=== PATIENT | male | born 1970 | race Caucasian/White ===

== ENCOUNTER 2020-08-10 03:20 | Emergency (ER) | payer SELFPAY ==
[2020-08-10] MEDS ORDERED: MORPHINE 4 MG/ML SYR ONE (03:44)
[2020-08-10] MEDS ORDERED: ONDANSETRON 4 MG/2 ML VIAL ONE (03:44)
[2020-08-10] MEDS ORDERED: NA CHLORIDE 0.9% 1,000 ML ONE (03:44)
[2020-08-10 04:00] LABS: Absolute Lymphocytes (CBC) 0.6 K/uL (0.7-4.9); Basophils % 0.5 % (0-1.3); Hematocrit 48.5 % (39.6-49.0); Lymphocytes % 6.1 % (15.3-44.8); MPV 8.2 fL (7.6-11.3); RBC Red Blood Cell Count 5.94 M/uL (4.33-5.43)
[2020-08-10 04:01] LABS: Calcium Oxalate Crystals- Ur FEW (NONE SEEN); Urine Bacteria <20 /HPF (NONE SEEN); Urine Culture Reflex Order REFLEXED; Urine Mucus 1+ /HPF (NONE SEEN); Urine RBC <5 /HPF (NONE SEEN)
[2020-08-10 04:07] LABS: Barbiturates NEGATIVE (NEGATIVE); Benzodiazepines NEGATIVE (NEGATIVE); Cocaine POSITIVE (NEGATIVE); METHAMPHETAM POSITIVE (NEGATIVE); Methadone NEGATIVE (NEGATIVE); Opiates NEGATIVE (NEGATIVE); Phencyclidine NEGATIVE (NEGATIVE); THC Cannibis NEGATIVE (NEGATIVE)
[2020-08-10 04:08] LABS: Albumin 4.2 g/dL (3.4-5.0); Bilirubin Direct 0.2 mg/dL (0-0.2); Bilirubin Total 0.7 mg/dL (0.2-1.0); Potassium 3.8 mmol/L (3.5-5.1); Protein, Total 8.7 g/dL (6.4-8.2)
[2020-08-10 05:24] LABS: Urine Blood NEGATIVE (NEG); Urine Glucose TRACE (NEG); Urine Protein 1+ (NEG); Urine Specific Gravity 1.025 (1.005-1.030)
[2020-08-10 05:25] LABS: Blood Morphology Comment NOT SEEN (NOT SEEN); Platelet Estimate ADEQ
--- NOTE | 2020-08-10 05:42 | ER ---
Nurse's Notes [facility] Name: Sanjiv Hdz Age: 50 yrs Sex: Male : 1970 Arrival Date: 08/10/2020 Time: 03:21 Bed 8 Private MD: Diagnosis: Right upper quadrant pain. Possible cholelcystitis Presentation: 08/10 03:22 Chief complaint: EMS states: complaint of severe abdominal pain (RUQ) started 3 hours rr5 ago with nausea and vomiting. pain score 10/10 non radiating, no fever. Coronavirus screen: Client denies travel out of the [place] in the last 14 days. At this time, the client does not indicate any symptoms associated with coronavirus-19. Ebola Screen: Patient negative for fever greater than or equal to 101.5 degrees Fahrenheit, and additional compatible Ebola Virus Disease symptoms Patient denies exposure to infectious person. Patient denies travel to an Ebola-affected area in the 21 days before illness onset. Initial Sepsis Screen: Does the patient meet any 2 criteria? No. Patient's initial sepsis screen is negative. Does the patient have a suspected source of infection? No. Patient's initial sepsis screen is negative. Risk Assessment: Do you want to hurt yourself or someone else? Patient reports no desire to harm self or others. Onset of symptoms was August 10, 2020. 03:22 Method Of Arrival: EMS: [facility] rr5 03:22 Acuity: ZEE 3 rr5 03:22 Care prior to arrival: Medication(s) given: reglan 10 mg/IV by EMS IV initiated. 18 GA, rr5 in the right forearm. Historical: - Allergies: 03:22 No Known Allergies; rr5 - Home Meds: 03:22 None [Active]; rr5 - PMHx: 03:22 Anxiety; Hypertension; rr5 - PSHx: 03:22 None; rr5 - Immunization history:: Adult Immunizations up to date. - Social history:: Smoking status: Patient reports the use of cigarette tobacco products, smokes one pack cigarettes per day. Patient/guardian denies using alcohol, street drugs. Screenin:25 Abuse screen: Denies threats or abuse. Denies injuries from another. Nutritional rr5 screening: No deficits noted. Tuberculosis screening: No symptoms or risk factors identified. Fall Risk IV access (20 points). Total Nolan Fall Scale indicates No Risk (0-24 pts). Assessment: 03:39 General: Appears uncomfortable, Behavior is appropriate for age. Pain: Complains of ea pain in right upper quadrant. Neuro: Level of Consciousness is awake, alert, obeys commands, Oriented to person, place, time. Respiratory: Airway is patent Respiratory effort is even, unlabored, Respiratory pattern is regular, symmetrical. GI: Abdomen is non-distended, Abd is soft and non tender X 4 quads. Derm: Skin is pink, warm \T\ dry. 03:39 Cardiovascular: Capillary refill < 3 seconds Patient's skin is warm and dry. GI: : No rr5 signs and/or symptoms were reported regarding the genitourinary system. EENT: No signs and/or symptoms were reported regarding the EENT system. Musculoskeletal: Capillary refill < 3 seconds. 04:50 Reassessment: Patient and/or family updated on plan of care and expected duration. Pain ea level reassessed. Awaiting on CT results. 05:34 Reassessment: Patient appears in no apparent distress at this time. Patient is alert, rr5 oriented x 3, equal unlabored respirations, skin warm/dry/pink. reassessment done by ED provider. 05:49 Reassessment: Patient appears in no apparent distress at this time. Patient is alert, rr5 oriented x 3, equal unlabored respirations, skin warm/dry/pink. for discharge ED provider advised to follow up to dr. reyes or to [facility] for further evaluation. discharge instruction given and explained without complaint made Patient states feeling better. Patient states symptoms have improved. Vital Signs: 03:22 Weight 72.57 kg; Height 5 ft. 9 in. (175.26 cm); Pain 10/10; rr5 03:22 BP 178 / 116; Pulse 75; Resp 16; Pulse Ox 100% ; rr5 03:30 Temp 98; ea 04:30 BP 143 / 65; Pulse 79; Resp 15; Pulse Ox 98% ; rr5 05:34 BP 141 / 85; Pulse 75; Resp 16; Pulse Ox 99% ; rr5 03:22 Body Mass Index 23.63 (72.57 kg, 175.26 cm) rr5 ED Course: 03:21 Patient arrived in ED. cl3 03:21 Donohue, Lan, RN is Primary Nurse. rr5 03:23 Triage completed. rr5 03:24 Bandar Araiza MD is Attending Physician. pkl 03:24 Arm band placed on right wrist. rr5 03:26 Patient has correct armband on for positive identification. Bed in low position. Call rr5 light in reach. Pulse ox on. NIBP on. 03:43 UDS Sent. ds4 03:45 Urine Microscopic Only Sent. ds4 04:47 CT Abd/Pelvis - IV Contrast Only In Process Unspecified. EDMS 05:40 Mitch Reyes MD is Referral Physician. pkl 05:51 No provider procedures requiring assistance completed. IV discontinued, intact, rr5 bleeding controlled, No redness/swelling at site. Pressure dressing applied. Administered Medications: 03:37 Drug: morphine 4 mg Route: IVP; Site: right forearm; ea 04:45 Follow up: Response: No adverse reaction; Marked relief of symptoms; RASS: Alert and rr5 Calm (0) 03:37 Drug: Zofran (Ondansetron) 4 mg Route: IVP; Site: right forearm; ea 04:45 Follow up: Response: No adverse reaction; Marked relief of symptoms rr5 03:38 Drug: NS 0.9% 1000 ml Route: IV; Rate: 1 bolus; Site: right forearm; ea 04:40 Follow up: Response: No adverse reaction; IV Status: Completed infusion; IV Intake: rr5 1000ml Intake: 04:40 IV: 1000ml; Total: 1000ml. rr5 Outcome: 05:42 Discharge ordered by . pkl 05:51 Discharged to home ambulatory. rr5 05:51 Condition: stable 05:51 Discharge instructions given to patient, Instructed on discharge instructions, follow up and referral plans. medication usage, Demonstrated understanding of instructions, follow-up care, medications, Prescriptions given X 2. 05:52 Patient left the ED. rr5 Signatures: Dispatcher [employer] EDWV Bandar Araiza MD MD pkl Bright Caldwell ds4 Sridevi Joseph, RN Lan Garcia ea, RN RN rr5 Landy Kwong cl3
--- NOTE | 2020-08-10 05:42 | EDPHYS ---
Physician Documentation [facility] Name: Sanjiv Hdz Age: 50 yrs Sex: Male : 1970 Arrival Date: 08/10/2020 Time: 03:21 Bed 8 Private MD: ED Physician Bandar Araiza HPI: 08/10 03:34 This 50 yrs old Male presents to ER via EMS with complaints of Abdominal Pain.pkl 03:34 The patient presents with abdominal pain in the right upper quadrant. Onset: The pkl symptoms/episode began/occurred just prior to arrival, 3 hour(s) ago. The symptoms do not radiate. Associated signs and symptoms: Pertinent positives: nausea and vomiting. The patient has not experienced similar symptoms in the past. Historical: - Allergies: 03:22 No Known Allergies; rr5 - Home Meds: 03:22 None [Active]; rr5 - PMHx: 03:22 Anxiety; Hypertension; rr5 - PSHx: 03:22 None; rr5 - Immunization history:: Adult Immunizations up to date. - Social history:: Smoking status: Patient reports the use of cigarette tobacco products, smokes one pack cigarettes per day. Patient/guardian denies using alcohol, street drugs. ROS: 03:34 Eyes: Negative for injury, pain, redness, and discharge, ENT: Negative for injury, pkl pain, and discharge, Neck: Negative for injury, pain, and swelling, Cardiovascular: Negative for chest pain, palpitations, and edema, Respiratory: Negative for shortness of breath, cough, wheezing, and pleuritic chest pain. 03:34 Abdomen/GI: Positive for abdominal pain, nausea and vomiting, of the right upper quadrant. 03:34 Back: Negative for acute changes. 03:34 : Negative for urinary symptoms. 03:34 MS/extremity: Negative for acute changes. 03:34 Skin: Negative for rash. 03:34 Neuro: Negative for altered mental status. Exam: 03:34 Head/Face: Normocephalic, atraumatic. Eyes: Pupils equal round and reactive to light, pkl extra-ocular motions intact. Lids and lashes normal. Conjunctiva and sclera are non-icteric and not injected. Cornea within normal limits. Periorbital areas with no swelling, redness, or edema. ENT: Nares patent. No nasal discharge, no septal abnormalities noted. Tympanic membranes are normal and external auditory canals are clear. Oropharynx with no redness, swelling, or masses, exudates, or evidence of obstruction, uvula midline. Mucous membranes moist. Neck: Trachea midline, no thyromegaly or masses palpated, and no cervical lymphadenopathy. Supple, full range of motion without nuchal rigidity, or vertebral point tenderness. No Meningismus. Chest/axilla: Normal chest wall appearance and motion. Nontender with no deformity. No lesions are appreciated. Cardiovascular: Regular rate and rhythm with a normal S1 and S2. No gallops, murmurs, or rubs. Normal PMI, no JVD. No pulse deficits. Respiratory: Lungs have equal breath sounds bilaterally, clear to auscultation and percussion. No rales, rhonchi or wheezes noted. No increased work of breathing, no retractions or nasal flaring. 03:34 Abdomen/GI: Bowel sounds: normal, Palpation: soft, moderate abdominal tenderness, in the right upper quadrant. 03:34 Back: Exam negative for acute changes. 03:34 : Exam negative for acute changes. 03:34 Musculoskeletal/extremity: Exam is negative for acute changes. 03:34 Skin: Exam negative for rash. 03:34 Neuro: Orientation: is normal, Mentation: is normal, Cranial nerves: grossly normal, Motor: is normal. Vital Signs: 03:22 Weight 72.57 kg; Height 5 ft. 9 in. (175.26 cm); Pain 10/10; rr5 03:22 BP 178 / 116; Pulse 75; Resp 16; Pulse Ox 100% ; rr5 03:30 Temp 98; ea 04:30 BP 143 / 65; Pulse 79; Resp 15; Pulse Ox 98% ; rr5 05:34 BP 141 / 85; Pulse 75; Resp 16; Pulse Ox 99% ; rr5 03:22 Body Mass Index 23.63 (72.57 kg, 175.26 cm) rr5 MDM: 03:24 Patient medically screened. pkl 05:37 Data reviewed: vital signs, nurses notes, lab test result(s), radiologic studies, CT pkl scan. ED course: Patient feeling better. Discussed lab and CT Scan results with patient. Advised to follow up with Dr. Jain ( Surgeon ) in 2 to 3 days for further evaluations Patient understood instructions. 08/10 03:26 Order name: Basic Metabolic Panel; Complete Time: 04:12 rr5 08/10 03:26 Order name: CBC with Diff; Complete Time: 05:27 rr5 08/10 03:26 Order name: Hepatic Function; Complete Time: 04:12 rr5 08/10 03:26 Order name: Lipase; Complete Time: 04:12 rr5 08/10 03:32 Order name: UDS; Complete Time: 04:12 pkl 08/10 03:43 Order name: Urine Microscopic Only ds4 08/10 03:32 Order name: CT Abd/Pelvis - IV Contrast Only pkl 08/10 03:44 Order name: Urine Dipstick--Ancillary (enter results); Complete Time: 05:27 ds4 08/10 04:03 Order name: Urine Culture EDMS 08/10 04:05 Order name: Manual Differential; Complete Time: 05:27 EDMS 08/10 03:26 Order name: IV Saline Lock; Complete Time: 03:28 rr5 08/10 03:26 Order name: Labs collected and sent; Complete Time: 03:28 rr5 Administered Medications: 03:37 Drug: morphine 4 mg Route: IVP; Site: right forearm; ea 04:45 Follow up: Response: No adverse reaction; Marked relief of symptoms; RASS: Alert and rr5 Calm (0) 03:37 Drug: Zofran (Ondansetron) 4 mg Route: IVP; Site: right forearm; ea 04:45 Follow up: Response: No adverse reaction; Marked relief of symptoms rr5 03:38 Drug: NS 0.9% 1000 ml Route: IV; Rate: 1 bolus; Site: right forearm; ea 04:40 Follow up: Response: No adverse reaction; IV Status: Completed infusion; IV Intake: rr5 1000ml Disposition: 08/10/20 05:42 Discharged to Home. Impression: Right upper quadrant pain. Possible cholelcystitis. - Condition is Stable. - Prescriptions for Ultram 50 mg Oral Tablet - take 1 tablet by ORAL route every 8 hours As needed; 12 tablet. Cipro 500 mg Oral Tablet - take 1 tablet by ORAL route every 12 hours for 7 days; 14 tablet. - Medication Reconciliation Form, Thank You Letter, Antibiotic Education, Prescription Opioid Use form. - Follow up: Mitch Silverio MD; When: 2 - 3 days; Reason: Re-evaluation by your physician. - Problem is new. - Symptoms have improved. Signatures: Dispatcher [employer] EDBandar Luis MD MD pkl Sridevi Joseph RN Lan Garcia ea RN RN rr5 Corrections: (The following items were deleted from the chart) 05:52 05:42 08/10/2020 05:42 Discharged to Home. Impression: Right upper quadrant pain. rr5 Possible cholelcystitis. Condition is Stable. Forms are Medication Reconciliation Form, Thank You Letter, Antibiotic Education, Prescription Opioid Use. Follow up: Mitch Silverio; When: 2 - 3 days; Reason: Re-evaluation by your physician. Problem is new. Symptoms have improved. pkl
[2020-08-10] MEDS ORDERED: CIPROFLOXACIN HCL 500 MG TAB ONE (05:55)
--- NOTE | 2020-08-10 10:11 | RAD REPORT ---
EXAM DESCRIPTION: CT - Abdomen Pelvis W Contrast - 08/10/2020 6:34 am CLINICAL HISTORY: The patient is 50 years old and is Male; ABD PAIN TECHNIQUE: Axial computed tomography images of the abdomen and pelvis with intravenous contrast. S agittal and coronal reformatted images were created and reviewed. This CT exam was performed using one or more of the following dose reduction techniques: automated exposure control, adjustment of t he mA and/or kV according to patient size, and/or use of iterative reconstruction technique. COMPARISON: No relevant prior studies available. FINDINGS: LUNG BASES: Minimal dependent densities in the lung bases are present. ABDOMEN: LIVER: Unremarkable. No mass. GALLBLADDER AND BILE DUCTS: The gallbladder is distended. No calcified gallstones are seen. Mild pericholecystic fluid/gallbladder wall enhancement is noted. PANCREAS: No ductal dilation. No mass. SPLEEN: Unremarkable. ADRENALS: Unremarkable. No mass. KIDNEYS AND URETERS: Unremarkable. The kidneys enhance symmetrically. No obstructing renal or ur eteral calculus is seen. No hydronephrosis or hydroureter. No perinephric fluid or stranding. STOMACH AND BOWEL: The stomach is minimally filled with fluid and air. The small bowel is normal in caliber. A moderate amount stool is present throughout colon. There is no mucosal thickening or e vidence of bowel obstruction. PELVIS: APPENDIX: The appendix is normal in caliber without surrounding inflammation. BLADDER: The bladder is not well distended. REPRODUCTIVE: Unremarkable as visualized. ABDOMEN and PELVIS: INTRAPERITONEAL SPACE: Unremarkable. No free air. No significant fluid collection. BONES/JOINTS: No acute fracture. SOFT TISSUES: The soft tissues are normal. VASCULATURE: Unremarkable. No abdominal aortic aneurysm. LYMPH NODES: Unremarkable. No enlarged lymph nodes. IMPRESSION: Distended gallbladder with suggestion of mild pericholecystic fluid and gallbladder wall enhancement. Findings are concerning for acute cholecystitis. Further evaluation with ultrasound and /or HIDA scan could be performed. Electronically signed by: Melissa Quinn MD 08/10/2020 5:06 AM SENIOR HRIS ANALYST Due to temporary technical issues with the PACS/Fluency reporting system, reports are being signed by the in house radiologist without review as a courtesy to ensure prompt reporting. The interpreting r adiologist is fully responsible for the content of the report.
[2020-08-10 15:22] VITALS: TEMP 98
[2020-08-10 15:25] VITALS: BP 141/85; O2SAT 99
== END 2020-08-10 05:52 | disposition home or self-care (01) ==
LOC: ER 03:20
DX: R10.11 Right upper quadrant pain (principal); K82.8 Other specified diseases of gallbladder; I10 Essential (primary) hypertension; F17.210 Nicotine dependence, cigarettes, uncomplicated
CPT/HCPCS: 36415; 74177; 80048; 80076; 80307; 81003; 81015; 83690; 85025; 87086; 87088; 96361; 96374; 96375; 99284; J2405; J7030; Q9967

== ENCOUNTER 2020-08-15 11:22 | Inpatient (IN) | payer SELFPAY ==
--- OUTSIDE RECORDS SUMMARY | 2020-08-15 11:46 | XMS REPORT | Continuity of Care Document ---
:1970 Author Organization [facility] t Address [address] [place] [address] Care Team Providers Name Role Phone Thong BARONE S Attending Clinician Problems This patient has no known problems. Allergies, Adverse Reactions, Alerts This patient has no known allergies or adverse reactions. Medications This patient has no known medications. Procedures This patient has no known procedures. Encounters Start End Encounter Admission Attending Care Care Encounter Source Date/Time Date/Time Type Type Clinicians Facility Department ID 2020-08-14 2020-08-14 Emergency JANNET Benito [id number] 04:41:00 06:09:00 Aaron Brewer [id number] [place] [id number] [place] [id number] Results This patient has no known results.
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
[2020-08-15] MEDS ORDERED: MORPHINE 4 MG/ML SYR ONE ×2 (12:04→12:42)
[2020-08-15] MEDS ORDERED: NA CHLORIDE 0.9% 1,000 ML ONE ×2 (12:04→14:46)
[2020-08-15] MEDS ORDERED: ONDANSETRON 4 MG/2 ML VIAL ONE (12:04)
[2020-08-15 12:15] LABS: Bilirubin Direct 0.1 mg/dL (0-0.2); Bilirubin Total 0.5 mg/dL (0.2-1.0); Potassium 4.1 mmol/L (3.5-5.1); Protein, Total 8.3 g/dL (6.4-8.2)
[2020-08-15 12:16] LABS: Absolute Lymphocytes (CBC) 0.9 K/uL (0.7-4.9); Basophils % 0.5 % (0-1.3); Hematocrit 49.7 % (39.6-49.0); Lymphocytes % 8.3 % (15.3-44.8); RBC Red Blood Cell Count 6.02 M/uL (4.33-5.43)
--- NOTE | 2020-08-15 12:30 | RAD REPORT ---
EXAM DESCRIPTION: US - Abdomen Exam Limited - 08/15/2020 12:17 pm CLINICAL HISTORY: ABD PAIN COMPARISON: Abdomen Pelvis W Contrast dated 08/10/2020 FINDINGS: There is at least one 12 millimeter size gallstone fixed at the neck. Additional adjacent smaller stones could be present as well. No mobile gallstones seen. No measurable quantity of sludge. Gallbladder wall thickness is upper normal. No pericholecystic fluid seen. No common duct stone or biliary tree dilatation identified. IMPRESSION: A 12 millimeter gallstone is fixed at the neck of the gallbladder. Gallbladder wall thic kness is upper normal. No biliary tree dilatation or duct stone seen.
[2020-08-15] MEDS ORDERED: KETOROLAC 30 MG/ML INJ ONE ×2 (12:42→18:49)
--- NOTE | 2020-08-15 14:06 | EDPHYS ---
Physician Documentation [facility] Name: Sanjiv Hdz Age: 50 yrs Sex: Male : 1970 Arrival Date: 08/15/2020 Time: : Bed 17 Private MD: ED Physician Eldon Thomas HPI: 08/15 14:00 This 50 yrs old Male presents to ER via Wheelchair with complaints of kb Abdominal Pain. 14:01 The patient presents with abdominal pain in the right upper quadrant. Onset: The kb symptoms/episode began/occurred 5 day(s) ago, and became worse this morning. The symptoms do not radiate. Associated signs and symptoms: Pertinent positives: nausea and vomiting. The symptoms are described as constant. Modifying factors: The symptoms are alleviated by nothing, the symptoms are aggravated by pressure. Severity of pain: At its worst the pain was severe in the emergency department the pain is unchanged. The patient has not experienced similar symptoms in the past. The patient has not recently seen a physician. Pt reports RUQ pain that started 5 days ago. Pt was seen here the first day and [place] [facility] 2 days ago. Pt was told to follow up with surgery, but has not been able to yet. States pain got worse this morning with nausea and vomiting. . Historical: - Allergies: 12:05 No Known Allergies; tw2 - PMHx: 11:37 Anxiety; Hypertension; ca1 - PSHx: 11:37 None; ca1 - Immunization history:: Adult Immunizations up to date, Flu vaccine is not up to date. - Social history:: Smoking status: Patient reports the use of cigarette tobacco products, smokes one-half pack cigarettes per day. ROS: 11:44 Constitutional: Negative for fever, chills, and weight loss, Cardiovascular: Negative kb for chest pain, palpitations, and edema, Respiratory: Negative for shortness of breath, cough, wheezing, and pleuritic chest pain, Back: Negative for injury and pain, : Negative for injury, bleeding, discharge, and swelling, MS/Extremity: Negative for injury and deformity, Skin: Negative for injury, rash, and discoloration, Neuro: Negative for headache, weakness, numbness, tingling, and seizure. 11:44 Abdomen/GI: Positive for abdominal pain, nausea and vomiting, Negative for diarrhea, constipation. Exam: 11:44 Constitutional: This is a well developed, well nourished patient who is awake, alert, kb and in no acute distress. Head/Face: Normocephalic, atraumatic. Chest/axilla: Normal chest wall appearance and motion. Nontender with no deformity. No lesions are appreciated. Cardiovascular: Regular rate and rhythm with a normal S1 and S2. No gallops, murmurs, or rubs. Normal PMI, no JVD. No pulse deficits. Respiratory: Lungs have equal breath sounds bilaterally, clear to auscultation and percussion. No rales, rhonchi or wheezes noted. No increased work of breathing, no retractions or nasal flaring. Back: No spinal tenderness. No costovertebral tenderness. Full range of motion. Skin: Warm, dry with normal turgor. Normal color with no rashes, no lesions, and no evidence of cellulitis. MS/ Extremity: Pulses equal, no cyanosis. Neurovascular intact. Full, normal range of motion. Neuro: Awake and alert, GCS 15, oriented to person, place, time, and situation. Cranial nerves II-XII grossly intact. Motor strength 5/5 in all extremities. Sensory grossly intact. Cerebellar exam normal. Normal gait. 11:44 Abdomen/GI: Inspection: abdomen appears normal, Bowel sounds: normal, in all quadrants, Palpation: soft, in all quadrants, severe abdominal tenderness, in the right upper quadrant. 11:45 ECG was reviewed by the Attending Physician. kb Vital Signs: 11:34 BP 189 / 113; ca1 11:34 BP 187 / 106 RA; Pulse 86; Resp 20; Temp 97.6(O); Pulse Ox 100% on R/A; Weight 74.84 kg ca1 (R); Height 5 ft. 9 in. (175.26 cm) (R); Pain 10/10; 12:46 BP 162 / 104; Pulse 72; Resp 21; Pulse Ox 100% on R/A; zb 13:42 BP 140 / 92; Pulse 83; Resp 17; Pulse Ox 99% on R/A; tw2 14:30 BP 145 / 94; Pulse 81; Resp 18; Pulse Ox 97% on R/A; zb 11:34 Body Mass Index 24.37 (74.84 kg, 175.26 cm) ca1 MDM: 11:37 Patient medically screened. kb 11:45 Data reviewed: vital signs, nurses notes. Data interpreted: Pulse oximetry: on room air kb is 100 %. Interpretation: normal. 13:36 Physician consultation: Ike Zaragoza MD was contacted at 13:36, regarding consult, kb patient's condition, message left. 13:44 Physician consultation: Physician consultation: was contacted at 13:44, regarding kb admission, to the medical/surgical unit. patient's condition, and will see patient in ED, shortly. 14:00 Counseling: I had a detailed discussion with the patient and/or guardian regarding: the kb historical points, exam findings, and any diagnostic results supporting the discharge/admit diagnosis, lab results, radiology results, the need for further work-up and treatment in the hospital. 08/15 11:40 Order name: Basic Metabolic Panel; Complete Time: 12:15 kb 08/15 11:40 Order name: CBC with Diff; Complete Time: 12:22 kb 08/15 11:40 Order name: Hepatic Function; Complete Time: 12:15 kb 08/15 11:40 Order name: Lipase; Complete Time: 12:15 kb 08/15 14:17 Order name: Basic Metabolic Panel EDMS 08/15 14:17 Order name: Basic Metabolic Panel EDMS 08/15 11:40 Order name: US Abdomen Limited; Complete Time: 12:33 kb 08/15 14:18 Order name: CBC with Automated Diff EDMS 08/15 14:18 Order name: CBC with Automated Diff EDMS 08/15 11:38 Order name: EKG; Complete Time: 11:38 ca1 08/15 11:38 Order name: EKG - Nurse/Tech; Complete Time: 11:38 ca1 08/15 11:40 Order name: IV Saline Lock; Complete Time: 11:58 kb 08/15 11:40 Order name: Labs collected and sent; Complete Time: 11:58 kb 08/15 14:17 Order name: NPO; Complete Time: 14:20 EDMS EC:45 Rate is 84 beats/min. Rhythm is regular. QRS [place] is Normal. ME interval is normal at kb 128 msec. QRS interval is normal at 84 msec. QT interval is normal at 378 msec. Administered Medications: 11:54 Drug: Zofran (Ondansetron) 4 mg Route: IVP; Site: left wrist; tw2 12:42 Follow up: Response: No adverse reaction zb 11:56 Drug: morphine 4 mg {Note: RASS 0.} Route: IVP; Site: left wrist; tw2 12:20 Follow up: Response: No adverse reaction; Pain is unchanged, physician notified zb 11:57 Drug: NS 0.9% 1000 ml Route: IV; Rate: 1000 ml; Site: left wrist; tw2 14:45 Follow up: Response: No adverse reaction; IV Status: Completed infusion; IV Intake: zb 1000ml 12:41 Drug: TORadol - Ketorolac 15 mg Route: IVP; Site: right antecubital; zb 12:43 Follow up: Response: No adverse reaction; Pain is decreased zb 12:42 Drug: morphine 4 mg Route: IVP; Site: right antecubital; zb 12:43 Follow up: Response: Marked relief of symptoms; Pain is decreased zb 14:38 Drug: NS 0.9% 1000 ml Route: IV; Rate: 125 ml/hr; Site: right antecubital; zb 14:46 Follow up: Response: No adverse reaction; IV Status: Infusion continued upon admission zb 14:39 Drug: Zosyn 3.375 grams Route: IVPB; Infused Over: 60 mins; Site: right antecubital; zb 14:45 Follow up: Response: No adverse reaction; IV Status: Infusion continued upon admission zb Disposition: 08/15/20 14:05 Hospitalization ordered by Ike Zaragoza for Observation. Preliminary diagnosis are Cholelithiasis, Upper abdominal pain, unspecified. - Bed requested for Telemetry/MedSurg (observation). - Status is Observation. zb - Condition is Stable. - Problem is new. - Symptoms are unchanged. Addendum: 08/20/2020 21:00 Co-signature as Attending Physician, Eldon Thomas MD Did not see or evaluate patient. p s1 Signature for administrative purposes. . Signatures: Dispatcher [employer] Belkys Bourne FNP-C FNP-Randa Villar RN RN tw2 Eldon Thomas MD MD ps1 Acob, Cheryl, RN RN ca1 Brown, Zipporah, RN RN zb Corrections: (The following items were deleted from the chart) 08/15 12:05 11:37 Allergies: Tetanus Vaccines \T\ Toxoid; ca1 tw2 14:00 13:44 Physician consultation: jeni kb 14:46 14:05 Hospitalization Ordered by Ike Zaragoza MD for Observation. Preliminary zb diagnosis is Cholelithiasis; Upper abdominal pain, unspecified. Bed requested for Telemetry/MedSurg (observation). Status is Observation. Condition is Stable. Problem is new. Symptoms are unchanged. kb
--- NOTE | 2020-08-15 14:06 | ER ---
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 Was here 4 days ago for gall bladder issues and was prescribed abx. Denies fever. Coronavirus screen: Client denies travel out of the [place] in the last 14 days. nausea, shortness of breath, Client presents with at least one sign or symptom that may indicate coronavirus-19. Standard/surgical mask placed on the client. Provider contacted for isolation considerations. Ebola Screen: Patient negative for fever greater than or equal to 101.5 degrees Fahrenheit, and additional compatible Ebola Virus Disease symptoms Patient denies exposure to infectious person. Patient denies travel to an Ebola-affected area in the 21 days before illness onset. No symptoms or risks identified at this time. Initial Sepsis Screen: Does the patient meet any 2 criteria? No. Patient's initial sepsis screen is negative. Does the patient have a suspected source of infection? No. Patient's initial sepsis screen is negative. Risk Assessment: Do you want to hurt yourself or someone else? Patient reports no desire to harm self or others. Onset of symptoms was August 15, 2020. 11:34 Method Of Arrival: Wheelchair ca1 11:34 Acuity: ZEE 3 ca1 Triage Assessment: 11:37 Cardiovascular: Rhythm is sinus rhythm. ca1 Historical: - Allergies: 12:05 No Known Allergies; tw2 - PMHx: 11:37 Anxiety; Hypertension; ca1 - PSHx: 11:37 None; ca1 - Immunization history:: Adult Immunizations up to date, Flu vaccine is not up to date. - Social history:: Smoking status: Patient reports the use of cigarette tobacco products, smokes one-half pack cigarettes per day. Screenin:05 Abuse screen: Denies threats or abuse. Nutritional screening: No deficits noted. tw2 Tuberculosis screening: No symptoms or risk factors identified. Fall Risk None identified. Assessment: 11:23 General: Appears uncomfortable, obese, Behavior is anxious, fussy. Pain: Complains of tw2 pain in right upper quadrant Pain does not radiate. Pain began "was here 4 days ago". Neuro: Level of Consciousness is awake, alert, obeys commands, Oriented to person, place, time, situation. Cardiovascular: Heart tones S1 S2 Patient's skin is warm and dry. Respiratory: Airway is patent Respiratory effort is even, unlabored, Respiratory pattern is regular, symmetrical, Breath sounds are clear bilaterally. GI: Abdomen is flat, Bowel sounds present X 4 quads. Reports lower abdominal pain, upper abdominal pain, nausea. : No signs and/or symptoms were reported regarding the genitourinary system. EENT: No signs and/or symptoms were reported regarding the EENT system. Derm: No signs and/or symptoms reported regarding the dermatologic system. Musculoskeletal: Range of motion: intact in all extremities. 12:44 General: Appears uncomfortable, Behavior is cooperative, anxious. Pain: Complains of zb pain in right upper quadrant Pain does not radiate. Pain currently is 6 out of 10 on a pain scale. Quality of pain is described as aching, crampy. Neuro: Level of Consciousness is awake, alert, obeys commands, Oriented to person, place, time, situation. Cardiovascular: Heart tones S1 S2 Capillary refill < 3 seconds is sluggish in bilateral fingers Patient's skin is warm and dry. Respiratory: Airway is patent Respiratory effort is even, unlabored, Respiratory pattern is symmetrical, tachypnea. GI: Abdomen is flat, non-distended, Bowel sounds present X 4 quads. Reports upper abdominal pain, nausea. : No signs and/or symptoms were reported regarding the genitourinary system. EENT: No signs and/or symptoms were reported regarding the EENT system. Derm: Skin is intact, is healthy with good turgor, Skin is normal. 13:44 Reassessment: provider at bedside at this time. tw2 14:41 Reassessment: Patient appears in no apparent distress at this time. Patient and/or zb family updated on plan of care and expected duration. Pain level reassessed. Patient is alert, oriented x 3, equal unlabored respirations, skin warm/dry/pink. Report given to LINETTE Avila nurse. Vital Signs: 11:34 BP 189 / 113; ca1 11:34 BP 187 / 106 RA; Pulse 86; Resp 20; Temp 97.6(O); Pulse Ox 100% on R/A; Weight 74.84 kg ca1 (R); Height 5 ft. 9 in. (175.26 cm) (R); Pain 10/10; 12:46 BP 162 / 104; Pulse 72; Resp 21; Pulse Ox 100% on R/A; zb 13:42 BP 140 / 92; Pulse 83; Resp 17; Pulse Ox 99% on R/A; tw2 14:30 BP 145 / 94; Pulse 81; Resp 18; Pulse Ox 97% on R/A; zb 11:34 Body Mass Index 24.37 (74.84 kg, 175.26 cm) ca1 ED Course: 11:22 Patient arrived in ED. as 11:23 Placed in gown. Bed in low position. Pulse ox on. NIBP on. tw2 11:36 Triage completed. ca1 11:36 Belkys Torres [facility]C [facility]. kb 11:36 Eldon Thomas MD is Attending Physician. kb 11:37 Arm band placed on right wrist. ca1 11:37 EKG completed in triage. Results shown to MD. ca1 11:48 Inserted saline lock: 20 gauge in left wrist, using aseptic technique. ,using aseptic tw2 technique. ANN,Ned Blood collected. 11:49 Randa Staley, RN is Primary Nurse. tw2 11:55 Report given to TEZ Rodriguez. tw2 12:02 IV discontinued, intact, bleeding controlled, Pressure dressing applied, swelling and tw2 pain report to LEFT wrist. 12:16 US Abdomen Limited In Process Unspecified. EDMS 12:47 Patient maintains SpO2 saturation greater than 95% on room air. zb 14:05 Ike Zaragoza MD is Hospitalizing Provider. kb 14:44 No provider procedures requiring assistance completed. Patient admitted, IV remains in zb place. Administered Medications: 11:54 Drug: Zofran (Ondansetron) 4 mg Route: IVP; Site: left wrist; tw2 12:42 Follow up: Response: No adverse reaction zb 11:56 Drug: morphine 4 mg {Note: RASS 0.} Route: IVP; Site: left wrist; tw2 12:20 Follow up: Response: No adverse reaction; Pain is unchanged, physician notified zb 11:57 Drug: NS 0.9% 1000 ml Route: IV; Rate: 1000 ml; Site: left wrist; tw2 14:45 Follow up: Response: No adverse reaction; IV Status: Completed infusion; IV Intake: zb 1000ml 12:41 Drug: TORadol - Ketorolac 15 mg Route: IVP; Site: right antecubital; zb 12:43 Follow up: Response: No adverse reaction; Pain is decreased zb 12:42 Drug: morphine 4 mg Route: IVP; Site: right antecubital; zb 12:43 Follow up: Response: Marked relief of symptoms; Pain is decreased zb 14:38 Drug: NS 0.9% 1000 ml Route: IV; Rate: 125 ml/hr; Site: right antecubital; zb 14:46 Follow up: Response: No adverse reaction; IV Status: Infusion continued upon admission zb 14:39 Drug: Zosyn 3.375 grams Route: IVPB; Infused Over: 60 mins; Site: right antecubital; zb 14:45 Follow up: Response: No adverse reaction; IV Status: Infusion continued upon admission zb Intake: 14:45 IV: 1000ml; Total: 1000ml. zb Outcome: 14:05 Decision to Hospitalize by Provider. kb 14:44 Admitted to OR accompanied by nurse, via wheelchair, with chart, Report called to zb Given to Margarita OR nurse 14:44 Condition: stable 14:44 Instructed on the need for admit. 14:46 Patient left the ED. zb Signatures: Dispatcher [employer] EDBelkys Saxena, WELDING PROCESS ENGINEER-C WELDING PROCESS ENGINEER-Ashanti Mccracken Tara, RN RN tw2 Rylie Perdomo RN RN Aida Man RN RN zb Corrections: (The following items were deleted from the chart) 11:56 11:56 morphine 4 mg IVP in left wrist tw2 tw2 12:05 11:37 Allergies: Tetanus Vaccines \\T\\ Toxoid; ca1 tw2
[2020-08-15] MEDS ORDERED: ONDANSETRON 4 MG/2 ML VIAL IV PRN (14:15)
[2020-08-15] MEDS ORDERED: MORPHINE 4 MG/ML SYR IV PRN (14:15)
[2020-08-15] MEDS ORDERED: PIPER/TAZO/NS 3.375gm 3.375 GM/100 ML BAG ONE (14:46)
[2020-08-15] MEDS ORDERED: NA CHLORIDE 0.9% 1,000 ML IV SCH (15:00)
[2020-08-15] MEDS ORDERED: SUCCINYLCHOLINE 20 MG/ML (10 ML) IV ONE (15:43)
[2020-08-15] MEDS ORDERED: MIDAZOLAM HCL 2 MG/2 ML INJ ONE (15:44)
[2020-08-15] MEDS ORDERED: FENTANYL CITR 250 MCG/5 ML ONE (15:44)
[2020-08-15] MEDS ORDERED: propofoL 200 MG/20 ML VIAL IV ONE (15:44)
[2020-08-15] MEDS ORDERED: ROCURONIUM 50 MG/5 ML VIAL IV ONE (15:54)
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
--- NOTE | 2020-08-15 16:46 | P.OP ---
Preoperative diagnosis: Cholecystitis with cholelithiasis Postoperative diagnosis: The same with hydrops of the gallbladder Primary procedure: Laparoscopic cholecystectomy Secondary procedure: Cholangiogram Other procedure(s): Dejna block Anesthesia: General Estimated blood loss: Less than 10 cc Specimen: 1 gallbladder and contents Operative Technique: The patient brought to the operating room and placed supine on the table. After the induction of adequate general endotracheal anesthesia, there the abdomen was prepped with a DuraPrep solution, and he was draped in usual aseptic manner. A subumbilical incision was made. This brought down through the skin and subcutaneous tissue. The Visiport was now used to enter the peritoneal cavity and created pneumoperitoneum to approximately 12 mm of mercury. Under direct vision a 5 mm trocar was placed in the upper midline, and 2 5 mm trocars on the right lateral side of the abdominal wall. The patient was now placed to ana Trendelenburg. The patient was then rolled to the left. We could visualize right upper quadrant. We saw a markedly distended and inflamed gallbladder. It was necessary to aspirate the contents with a needle so as to place a grasper on it. The bile we obtained was white bile. At this point the gallbladder was grasped down by Malissa's pouch. Applying lateral traction we could see a markedly amount of edema in the area of the Malissa's pouch and were Re expected to find the cystic duct. The peritoneum was opened in this area. We dissected out an expose the cystic duct and artery. Having obtained the critical view the cystic artery was clipped and divided. This made it easier for us to do our cholangiogram. A clip was placed between the gallbladder and the cystic duct. An opening was made into the cystic duct through which we obtained a normal intraoperative cholangiogram. The catheter was now removed. The clips were placed on the distal portion of the cystic duct. The cystic duct was now fully transected. We dissected the gallbladder out from the liver bed. At the beginning of our dissection we found a now brim blood vessel on which we placed clips. The gallbladder having been detached was now placed into an Endo-Catch, and brought out through the umbilical trocar site. The abdomen was now inspected to ensure adequate hemostasis. The liver bed was found to be relatively dry. There was irrigated with a saline solution. The irrigating fluid was aspirated from the peritoneal cavity. The patient was then placed flat on the OR table. The umbilical trocar site was approximated using the Endo Close an absorbable suture. Attention was turned back up towards right upper quadrant. The remaining irrigant fluid was removed from the peritoneal cavity. 0.25% Marcaine was now used to do a Dejan block. We saw the area of injection site and she inserted the needle. We raise a large bleb in that area to provide for adequate analgesia during the postoperative period. At the end of procedure the trocars were removed, the pneumoperitoneum collapse, and the suture tied. Teofilo were then applied to the skin stable when sent to the recovery room. Needle sponge instrument count were correct. No drains were placed. Complications: None Transferred to: Recovery Room Condition: Good
[2020-08-15] MEDS ORDERED: NEOSTIGMINE 1 MG/ML -5 ML ONE (16:50)
[2020-08-15] MEDS ORDERED: GLYCOPYRROLATE 0.2 MG/ML SYR ONE (16:50)
[2020-08-15] MEDS ORDERED: Ringers Lactate 1,000 ML IV ONE (17:18)
--- NOTE | 2020-08-15 17:31 | RAD REPORT ---
EXAM DESCRIPTION: RAD - Cholangiogram Oper-Xray Or - 08/15/2020 5:18 pm CLINICAL HISTORY: LAPCHOLE Abdominal pain COMPARISON: Abdomen Exam Limited dated 08/15/2020 FINDINGS: No fluoroscopic images are submitted. Total fluoro time: 0 minutes.
[2020-08-15] MEDS: FENTANYL CITR 100 MCG/2 ML ONE ×2 (17:50→18:05)
--- NOTE | 2020-08-15 18:11 | EKG ---
Test Date: 2020-08-15 Test Time: 11:28:13 Substation Operator Transforming: NAN MEASUREMENT RESULTS: Intervals: Rate: 84 AL: 128 QRSD: 84 QT: 378 QTc: 446 [place]: P: 70 AL: 128 QRS: 59 T: 56 INTERPRETIVE STATEMENTS: Normal sinus rhythm Normal ECG Compared to ECG 07/06/2007 02:29:28 Sinus bradycardia no longer present Electronically Signed On 08-15-20 18:11:13 ICER MACHINE by Weston Chiang
[2020-08-15] MEDS: PIPER/TAZO/NS 3.375gm 3.375 GM/100 ML BAG IVPB SCH (20:00)
[2020-08-15] MEDS: Ringers Lactate 1,000 ML IV SCH (20:46)
[2020-08-15] MEDS: HYDROCODONE/APAP 7.5/325 MG TAB PO PRN (20:47)
[2020-08-15] MEDS ORDERED: PIPER/TAZO/NS 3.375gm 6.750 GM/200 ML BAG ONE (21:15)
[2020-08-15 21:40] VITALS: O2SAT 99; BMI 24.3
[2020-08-15] MEDS: MORPHINE 4 MG/ML SYR IV PRN (22:00)
[2020-08-16] MEDS: PIPER/TAZO/NS 3.375gm 3.375 GM/100 ML BAG IVPB SCH ×3 (01:06→12:00)
[2020-08-16] MEDS: MORPHINE 4 MG/ML SYR IV PRN ×2 (02:25→08:36)
[2020-08-16] MEDS: HYDROCODONE/APAP 7.5/325 MG TAB PO PRN ×2 (03:36→13:10)
[2020-08-16 04:29] LABS: Absolute Lymphocytes (CBC) 1.5 K/uL (0.7-4.9); Basophils % 0.6 % (0-1.3); Hematocrit 41.8 % (39.6-49.0); Lymphocytes % 19.1 % (15.3-44.8); MPV 7.8 fL (7.6-11.3); RBC Red Blood Cell Count 5.04 M/uL (4.33-5.43)
[2020-08-16 04:36] LABS: Potassium 4.5 mmol/L (3.5-5.1)
[2020-08-16] MEDS: Ringers Lactate 1,000 ML IV SCH ×2 (06:01→13:00)
--- NOTE | 2020-08-16 12:30 | P.DS ---
Admission Date: 08/16/20 Discharge Date: 08/16/20 Disposition: ROUTINE DISCHARGE Discharge Condition: GOOD Reason for Admission: Acute postoperative abdominal pain Procedures: Laparoscopic cholecystectomy, intraoperative cholangiogram, santy block. Brief History of Present Illness: The patient presents emergency room with severe right upper quadrant abdominal pain for diagnosis and treatment. Hospital Course: This patient, who was had recurrent bouts of right upper quadrant abdominal pain has documented gallstones presented with severe right upper quadrant abdominal pain again. He has a stone wedged in the neck of his gallbladder. He was brought to the operating room for laparoscopic cholecystectomy with a cholangiogram. The cholangiogram was negative any tolerated the procedure well. He was admitted for observation postoperatively for acute postoperative abdominal pain. This morning he is up ambulating, tolerating a diet, and his pain is controlled on oral medication. He will be discharged to see me next week. Vital Signs/Physical Exam: Temp Pulse Resp BP Pulse Ox 98.1 F 71 18 180/96 H 99 08/16/20 08:00 08/16/20 08:00 08/16/20 08:36 08/16/20 08:00 08/16/20 08:36 Laboratory Data at Discharge: WBC 7.7 K/uL (4.3-10.9) D 08/16/20 03:34 Hgb 14.3 g/dL (13.6-17.9) D 08/16/20 03:34 Hct 41.8 % (39.6-49.0) D 08/16/20 03:34 Plt Count 321 K/uL (152-406) 08/16/20 03:34 Sodium 140 mmol/L (136-145) 08/16/20 03:34 Potassium 4.5 mmol/L (3.5-5.1) 08/16/20 03:34 BUN 9 mg/dL (7-18) 08/16/20 03:34 Creatinine 1.18 mg/dL (0.55-1.3) 08/16/20 03:34 Glucose 95 mg/dL (74-106) 08/16/20 03:34 Total Bilirubin 0.5 mg/dL (0.2-1.0) 08/15/20 11:50 AST 18 U/L (15-37) 08/15/20 11:50 ALT 25 U/L (12-78) 08/15/20 11:50 Alkaline Phosphatase 124 U/L (45-117) H 08/15/20 11:50 Lipase 90 U/L (73-393) 08/15/20 11:50 Home Medications: NK [No Home Meds] 08/15/20 Followup: NONE,NONE [Primary Care Provider] -
[2020-08-16 13:43] VITALS: BP 140/80
[2020-08-16 14:18] VITALS: TEMP 97.4
== END 2020-08-16 13:26 | disposition home or self-care (01) | DRG 419 ==
LOC: ER 11:22 → ERHOLD 14:18 → 2ND 17:33 → OBSVTOIN 08-16 07:36
PROVIDERS: ADMIT Surgery; ATTEND Surgery
PROC: BF121ZZ Fluoroscopy of Gallbladder using Low Osmolar Contrast (ICD-10-PCS; 2020-08-15)
PROC: 0FT44ZZ Resection of Gallbladder, Percutaneous Endoscopic Approach (ICD-10-PCS; principal; 2020-08-15 15:00)
DX: K80.10 Calculus of gallbladder with chronic cholecystitis without obstruction (principal); I10 Essential (primary) hypertension; F17.210 Nicotine dependence, cigarettes, uncomplicated; Z20.828 Contact with and (suspected) exposure to other viral communicable diseases
CPT/HCPCS: 36415; 74300; 76705; 80048; 80076; 83690; 85025; 88304; 93005; 94010; 99285; G0378; J0330; J2250; J2405; J2543; J2704; J2710; J3010; J7030; J7120; U0002

== ENCOUNTER 2020-09-03 | Emergency (ER) | payer SELFPAY ==
--- OUTSIDE RECORDS SUMMARY | 2020-09-03 16:45 | XMS REPORT | Continuity of Care Document ---
:1970 Author Organization [facility] t Address [address] [place] [address] Care Team Providers Name Role Phone Thong [...] Department ID 2020-08-14 2020-08-14 Emergency JANNET Benito [id number] 04:41:00 06:09:00 Aaron Brewer [id number] [place] [id number] [place] [phone] [id number] Results This patient has no known results.
--- NOTE | 2020-09-03 17:10 | ER ---
Nurse's Notes [facility] Name: Sanjiv Hdz Age: 50 yrs Sex: Male : 1970 Arrival Date: 09/03/2020 Time: 16:45 Bed Waiting Private MD: Diagnosis: ED Course: 09/03 16:45 Patient arrived in ED. bp1 17:09 Patient's name was called from ER lobby. No response. Unable to locate patient. Will ca1 disposition as left without being seen by a provider. Administered Medications: No medications were administered Outcome: 17:10 Patient left the ED. ca1 Signatures: Rylie Perdomo RN RN ca1 Mandie Chacko bp1
== END 2020-09-03 17:10 | disposition left against medical advice (07) ==
DX: Z02.9 Encounter for administrative examinations, unspecified (principal)

== ENCOUNTER 2021-02-17 12:47 | Emergency (ER) | payer SELFPAY ==
--- OUTSIDE RECORDS SUMMARY | 2021-02-17 12:49 | XMS REPORT | Continuity of Care Document ---
:1970 Author Organization [facility] t Address [address] [place] [address] Care Team Providers Name Role Phone Thong [...] Department ID 2020-08-14 2020-08-14 Emergency JANNET Benito [id number] 04:41:00 06:09:00 Aaron Brewer [id number] [place] [id number] [place] [phone] [id number] Results This patient has no known results.
[2021-02-17 13:41] LABS: Absolute Lymphocytes (CBC) 1.2 K/uL (0.7-4.9); Hematocrit 44.3 % (39.6-49.0); Lymphocytes % 14.7 % (15.3-44.8); MPV 7.7 fL (7.6-11.3); RBC Red Blood Cell Count 5.36 M/uL (4.33-5.43)
[2021-02-17] MEDS ORDERED: NA CHLORIDE 0.9% 1,000 ML ONE (13:48)
[2021-02-17 14:04] LABS: ALT/SGPT 38 U/L (12-78); AST/SGOT 68 U/L (15-37); Albumin 4.2 g/dL (3.4-5.0); Alkaline Phosphatase 111 U/L (45-117); BUN Blood Urea Nitrogen 30 mg/dL (7-18); Bicarbonate 27 mmol/L (21-32); Bilirubin Direct 0.2 mg/dL (0-0.2); Bilirubin Total 1.2 mg/dL (0.2-1.0); Glucose Level 84 mg/dL (74-106); Potassium 4.4 mmol/L (3.5-5.1); Protein, Total 8.5 g/dL (6.4-8.2); Sodium Level 141 mmol/L (136-145)
[2021-02-17 14:15] LABS: Protime INR 1.07
--- NOTE | 2021-02-17 14:59 | EDPHYS ---
Physician Documentation [facility] Name: Sanjiv Hdz Age: 50 yrs Sex: Male : 1970 Arrival Date: 02/17/2021 Time: 12:51 Bed 19 Private MD: ED Physician Milind Slade HPI: 02/17 14:50 This 50 yrs old Male presents to ER via Law Enforcement with complaints of juan Drug Abuse, Altered Mental Status. 14:50 The patient presents with agitation. Onset: The symptoms/episode began/occurred just juan prior to arrival, this morning. Possible causes: drug use, amphetamines. Associated signs and symptoms: Pertinent positives: weakness. Current symptoms: In the emergency department the patient's symptoms have improved, mildly. Patient's baseline: Neuro: alert and fully oriented. The patient has experienced similar episodes in the past, multiple times. Historical: - Allergies: 12:51 No Known Allergies; rb3 - PMHx: 12:51 Anxiety; Hypertension; rb3 - Immunization history:: Adult Immunizations unknown. - Social history:: Smoking status: Patient reports the use of cigarette tobacco products, smokes one pack cigarettes per day. ROS: 14:52 Constitutional: Negative for fever, chills, and weight loss, Eyes: Negative for injury, juan pain, redness, and discharge, ENT: Negative for injury, pain, and discharge, Neck: Negative for injury, pain, and swelling, Cardiovascular: Negative for chest pain, palpitations, and edema, Respiratory: Negative for shortness of breath, cough, wheezing, and pleuritic chest pain, Abdomen/GI: Negative for abdominal pain, nausea, vomiting, diarrhea, and constipation, Back: Negative for injury and pain, : Negative for injury, bleeding, discharge, and swelling, MS/Extremity: Negative for injury and deformity, Skin: Negative for injury, rash, and discoloration, Neuro: Negative for headache, weakness, numbness, tingling, and seizure, Allergy/Immunology: Negative for hives, rash, and allergies, Endocrine: Negative for neck swelling, polydipsia, polyuria, polyphagia, and marked weight changes, Hematologic/Lymphatic: Negative for swollen nodes, abnormal bleeding, and unusual bruising. 14:52 Psych: Positive for anxiety. Exam: 14:52 Constitutional: This is a well developed, well nourished patient who is awake, alert, juan and in no acute distress. Head/Face: Normocephalic, atraumatic. Eyes: Pupils equal round and reactive to light, extra-ocular motions intact. Lids and lashes normal. Conjunctiva and sclera are non-icteric and not injected. Cornea within normal limits. Periorbital areas with no swelling, redness, or edema. ENT: Nares patent. No nasal discharge, no septal abnormalities noted. Tympanic membranes are normal and external auditory canals are clear. Oropharynx with no redness, swelling, or masses, exudates, or evidence of obstruction, uvula midline. Mucous membranes moist. Neck: Trachea midline, no thyromegaly or masses palpated, and no cervical lymphadenopathy. Supple, full range of motion without nuchal rigidity, or vertebral point tenderness. No Meningismus. Chest/axilla: Normal chest wall appearance and motion. Nontender with no deformity. No lesions are appreciated. Cardiovascular: Regular rate and rhythm with a normal S1 and S2. No gallops, murmurs, or rubs. Normal PMI, no JVD. No pulse deficits. Respiratory: Lungs have equal breath sounds bilaterally, clear to auscultation and percussion. No rales, rhonchi or wheezes noted. No increased work of breathing, no retractions or nasal flaring. Abdomen/GI: Soft, non-tender, with normal bowel sounds. No distension or tympany. No guarding or rebound. No evidence of tenderness throughout. Back: No spinal tenderness. No costovertebral tenderness. Full range of motion. Male : Normal genitalia with no discharge or lesions. Skin: Warm, dry with normal turgor. Normal color with no rashes, no lesions, and no evidence of cellulitis. MS/ Extremity: Pulses equal, no cyanosis. Neurovascular intact. Full, normal range of motion. Neuro: Awake and alert, GCS 15, oriented to person, place, time, and situation. Cranial nerves II-XII grossly intact. Motor strength 5/5 in all extremities. Sensory grossly intact. Cerebellar exam normal. Normal gait. 14:52 Psych: Behavior/mood is pleasant, cooperative, appropriate for age, Affect is calm, Oriented to person, place, time, Patient has no thoughts/intents to harm self or others. Judgement / Insight is normal. Memory is normal. Delusions/hallucinations are not present. 14:57 ECG was reviewed by the Attending Physician. [facility] Vital Signs: 12:55 BP 150 / 93; Pulse 89; Resp 19; Temp 98.0; Pulse Ox 100% ; Weight 74.84 kg; Height 5 rb3 ft. 9 in. (175.26 cm); Pain 0/10; 13:58 BP 143 / 89; Pulse 88; Resp 18; Pulse Ox 100% ; rb3 12:55 Body Mass Index 24.37 (74.84 kg, 175.26 cm) rb3 MDM: 12:58 Patient medically screened. [facility] 14:56 Differential diagnosis: drug withdrawal. acute psychotic break, depression. [facility] Differential Diagnosis: electrolyte abnormality, alcohol intoxication, hypoglycemia, overdose. Data reviewed: vital signs, nurses notes, lab test result(s), EKG. Data interpreted: bill peddler: rate is 89 beats/min, rhythm is regular, Pulse oximetry: on room air is 100 %. Test interpretation: by ED physician or midlevel provider: ECG. Counseling: I had a detailed discussion with the patient and/or guardian regarding: the historical points, exam findings, and any diagnostic results supporting the discharge/admit diagnosis, lab results, the need for outpatient follow up, for definitive care, a family practitioner, a psychiatrist. 02/17 12:59 Order name: Acetaminophen; Complete Time: 14:07 [facility] 02/17 12:59 Order name: Basic Metabolic Panel; Complete Time: 14:07 [facility] 02/17 12:59 Order name: CBC with Diff; Complete Time: 14:07 [facility] 02/17 12:59 Order name: ETOH Level [facility] 02/17 12:59 Order name: Hepatic Function; Complete Time: 14:07 [facility] 02/17 12:59 Order name: PT-INR [facility] 02/17 12:59 Order name: Ptt, Activated [facility] 02/17 12:59 Order name: Salicylate [facility] 02/17 12:59 Order name: Urine Drug Screen [facility] 02/17 12:59 Order name: EKG; Complete Time: 12:59 [facility] 02/17 12:59 Order name: EKG - Nurse/Tech; Complete Time: 13:27 [facility] 02/17 12:59 Order name: IV Saline Lock; Complete Time: 13:55 [facility] 02/17 15:32 Order name: Urine Dipstick-Ancillary EDDE 02/17 12:59 Order name: Labs collected and sent; Complete Time: 13:27 [facility] 02/17 12:59 Order name: Urine Dipstick-Ancillary (obtain specimen); Complete Time: 15:33 [facility] 02/17 13:39 Order name: Labs - recollect needed: recollect blue top/ not filled ; Complete Time: 13:55 EC:57 Rate is 88 beats/min. Rhythm is regular. QRS [place] is Normal. [place] interval is normal. QRS juan interval is normal. QT interval is normal. No Q waves. T waves are Normal. No ST changes noted. Clinical impression: Normal ECG and No evidence of ischemia. Interpreted by me. Reviewed by me. Administered Medications: 13:51 Drug: NS 0.9% 1000 ml Route: IV; Rate: 1 bolus; Site: left antecubital; rb3 14:49 Follow up: IV Status: Completed infusion rb3 Disposition: 02/17/21 14:59 Discharged to Home. Impression: Abuse of non-psychoactive substances, Anxiety disorder, unspecified, Adverse effect of amphetamines. - Condition is Stable. - Discharge Instructions: Stimulant Use Disorder-Amphetamines, Substance Use Disorder, Stimulant Use Disorder-Methamphetamines, Generalized Anxiety Disorder. - Medication Reconciliation Form, Thank You Letter, Antibiotic Education, Prescription Opioid Use form. - Follow up: Private Physician; When: 2 - 3 days; Reason: Recheck today's complaints, Continuance of care, Re-evaluation by your physician. Follow up: Abran Burkett MD; When: 2 - 3 days; Reason: Recheck today's complaints, Re-evaluation by your physician. - Problem is new. - Symptoms have improved. Signatures: Dispatcher [employer] [facility] Milind Slade MD MD cha Botello, Elizabeth eb Barber, Rebecca, RN RN rb3 Corrections: (The following items were deleted from the chart) 15:34 12:59 Suicide Screening ([place]) ordered. [email or web address] 15:55 14:59 02/17/2021 14:59 Discharged to Home. Impression: Abuse of non-psychoactive rb3 substances; Anxiety disorder, unspecified; Adverse effect of amphetamines. Condition is Stable. Forms are Medication Reconciliation Form, Thank You Letter, Antibiotic Education, Prescription Opioid Use. Follow up: Private Physician; When: 2 - 3 days; Reason: Recheck today's complaints, Continuance of care, Re-evaluation by your physician. Follow up: Abran Burkett; When: 2 - 3 days; Reason: Recheck today's complaints, Re-evaluation by your physician. Problem is new. Symptoms have improved. juan
--- NOTE | 2021-02-17 14:59 | ER ---
Nurse's Notes [facility] Name: Sanjiv Hdz Age: 50 yrs Sex: Male : 1970 Arrival Date: 02/17/2021 Time: 12:51 Bed 19 Private MD: Diagnosis: Abuse of non-psychoactive substances;Anxiety disorder, unspecified;Adverse effect of amphetamines Presentation: 02/17 12:55 Chief complaint: Ux Engineer reports that the pt. was in the front yard fighting demons rb3 that were trying to kill him. Pt. is known to use Meth, but last use is unknown. When officers arrived on scene, he was being aggressive. But has since calmed down and is longer aggressive. Pt. was diaphoretic and his heart rate was in 130's. 12:55 Coronavirus screen: At this time, the client does not indicate any symptoms associated rb3 with coronavirus-19. Ebola Screen: Patient denies travel to an Ebola-affected area in the 21 days before illness onset. Initial Sepsis Screen: Does the patient meet any 2 criteria? No. Patient's initial sepsis screen is negative. Does the patient have a suspected source of infection? No. Patient's initial sepsis screen is negative. Risk Assessment: Do you want to hurt yourself or someone else? Patient reports no desire to harm self or others. Other: Pt. denies having hallucinations. Onset of symptoms was February 17, 2021. 12:55 Method Of Arrival: Law Enforcement: Janette HUANG rb3 12:55 Acuity: ZEE 3 rb3 Triage Assessment: 12:55 General: Appears in no apparent distress. comfortable, Behavior is calm, cooperative, rb3 Denies fever. Pain: Denies pain. Neuro: Level of Consciousness is awake, alert, obeys commands, Oriented to person, place, time, situation. Cardiovascular: Patient's skin is warm and dry. Respiratory: Airway is patent Respiratory effort is even, unlabored, Respiratory pattern is regular, symmetrical. GI: No signs and/or symptoms were reported involving the gastrointestinal system. : No signs and/or symptoms were reported regarding the genitourinary system. Musculoskeletal: Range of motion: intact in all extremities. Historical: - Allergies: 12:51 No Known Allergies; rb3 - PMHx: 12:51 Anxiety; Hypertension; rb3 - Immunization history:: Adult Immunizations unknown. - Social history:: Smoking status: Patient reports the use of cigarette tobacco products, smokes one pack cigarettes per day. Screenin:55 Abuse screen: Denies threats or abuse. Nutritional screening: No deficits noted. rb3 Tuberculosis screening: No symptoms or risk factors identified. Fall Risk None identified. Assessment: 12:55 General: See triage assessment. rb3 13:58 Reassessment: Patient appears in no apparent distress at this time. Patient and/or rb3 family updated on plan of care and expected duration. Pain level reassessed. Patient is alert, oriented x 3, equal unlabored respirations, skin warm/dry/pink. 14:53 Reassessment: Patient appears in no apparent distress at this time. No changes from rb3 previously documented assessment. 15:42 Reassessment: Patient appears in no apparent distress at this time. Patient and/or rb3 family updated on plan of care and expected duration. Pain level reassessed. Patient is alert, oriented x 3, equal unlabored respirations, skin warm/dry/pink. Overdose: 12:55 [place] Suicide Severity Screening: "In the past month, have you wished you were rb3 or wished you could go to sleep and not wake up?" Patient responds "no." "In the past month, have you actually had any thoughts of killing yourself?" Patient responds "no." "In your lifetime, have you ever done anything, started to do anything, or prepared to do anything to end your life?" Patient responds "no.". 12:55 [place] Suicide Severity Screening: "In the past month, have you wished you were rb3 or wished you could go to sleep and not wake up?" Patient responds "no." "In the past month, have you actually had any thoughts of killing yourself?" Patient responds "yes.". Vital Signs: 12:55 BP 150 / 93; Pulse 89; Resp 19; Temp 98.0; Pulse Ox 100% ; Weight 74.84 kg; Height 5 rb3 ft. 9 in. (175.26 cm); Pain 0/10; 13:58 BP 143 / 89; Pulse 88; Resp 18; Pulse Ox 100% ; rb3 12:55 Body Mass Index 24.37 (74.84 kg, 175.26 cm) rb3 ED Course: 12:51 Patient arrived in ED. ll1 12:53 Annie Valencia, RN is Primary Nurse. rb3 12:55 Arm band placed on right wrist. rb3 12:55 Patient has correct armband on for positive identification. Bed in low position. Call rb3 light in reach. Side rails up X 1. Pulse ox on. NIBP on. Warm blanket given. 12:58 Milind Slade MD is Attending Physician. [facility] 13:11 Triage completed. rb3 13:26 Acetaminophen Sent. mh5 13:26 Basic Metabolic Panel Sent. 5 13:26 CBC with Diff Sent. mh5 13:26 ETOH Level Sent. 5 13:26 Hepatic Function Sent. 5 13:26 PT-INR Sent. 5 13:26 Ptt, Activated Sent. 5 13:26 Salicylate Sent. 5 13:27 Initial lab(s) drawn, by ED staff, sent to lab. EKG done, by ED staff, reviewed by erik Slade MD. 13:30 Safety checks: Items removed: yes. Door open/sign placed on door: yes. Family/friend [facility] present: no. Sitter present: Yes. Placed in gown. 13:49 Inserted saline lock: 22 gauge in left forearm, using aseptic technique. Blood ds4 collected. 14:58 Abran Burkett MD is Referral Physician. [facility] 15:34 Urine Drug Screen Sent. [facility] 15:34 Urine collected: clean catch specimen, clear. mh5 15:42 No provider procedures requiring assistance completed. IV discontinued, intact, rb3 bleeding controlled, No redness/swelling at site. Pressure dressing applied. Administered Medications: 13:51 Drug: NS 0.9% 1000 ml Route: IV; Rate: 1 bolus; Site: left antecubital; rb3 14:49 Follow up: IV Status: Completed infusion rb3 Outcome: 14:59 Discharge ordered by . [facility] 15:42 Discharged to home ambulatory. rb3 15:42 Condition: stable 15:42 Discharge instructions given to patient, Instructed on discharge instructions, follow up and referral plans. Demonstrated understanding of instructions, follow-up care, Prescriptions given X none 15:42 Patient left the ED. rb3 Signatures: Milind Slade MD MD cha Swanson, Donovan ds4 Mavis Muniz mh5 Yamilka Kwong, RN RN ll1 Annie Valencia, RN RN rb3 Corrections: (The following items were deleted from the chart) 15:07 12:55 Chief complaint: reports that the pt. was in the front yard fighting rb3 demons that were trying to kill him. Pt. is known to use Meth, but last use is unknown. When officers arrived he was being aggressive. Pt. was diaphoretic and his heart rate was in 130's rb3 15:55 15:55 Patient left the ED. rb3 rb3
[2021-02-17 15:32] LABS: Urine Blood Negative (Negative); Urine Glucose Negative (Negative); Urine Protein Negative (Negative); Urine Specific Gravity >=1.030 (1.005-1.030); Urine pH 5.5 (5.0-7.0)
[2021-02-17 15:54] LABS: Barbiturates NEGATIVE (NEGATIVE); Benzodiazepines NEGATIVE (NEGATIVE); Cocaine NEGATIVE (NEGATIVE); METHAMPHETAM POSITIVE (NEGATIVE); Methadone NEGATIVE (NEGATIVE); Opiates NEGATIVE (NEGATIVE); Phencyclidine NEGATIVE (NEGATIVE); THC Cannibis NEGATIVE (NEGATIVE)
[2021-02-17 16:01] VITALS: TEMP 98; O2SAT 100
[2021-02-17 16:03] VITALS: BP 143/89
--- NOTE | 2021-02-21 12:08 | EKG ---
Test Date: 2021-02-17 Test Time: 13:21:19 Bead Flipper: KATIE MEASUREMENT RESULTS: Intervals: Rate: 88 IA: 130 QRSD: 78 QT: 364 QTc: 440 [place]: P: 74 IA: 130 QRS: 45 T: 53 INTERPRETIVE STATEMENTS: Normal sinus rhythm Normal ECG Compared to ECG 08/15/2020 11:28:13 No significant changes Electronically Signed On 02-21-21 11:55:26 CDT by Weston Chiang
== END 2021-02-17 15:55 | disposition home or self-care (01) ==
LOC: ER 12:47
DX: F41.9 Anxiety disorder, unspecified (principal); F55.8 Abuse of other non-psychoactive substances; I10 Essential (primary) hypertension; F17.210 Nicotine dependence, cigarettes, uncomplicated; T43.625A Adverse effect of amphetamines, initial encounter
CPT/HCPCS: 36415; 80048; 80076; 80307; 80320; 80329; 81003; 85025; 85610; 85730; 93005; 96360; 99284; J7030

== ENCOUNTER 2021-03-12 11:53 | Emergency (ER) | payer SELFPAY ==
--- OUTSIDE RECORDS SUMMARY | 2021-03-12 11:55 | XMS REPORT | Continuity of Care Document ---
:1970 Author Organization [facility] t Address [address] [place] [address] Care Team Providers Name Role Phone Thong [...] Department ID 2020-08-14 2020-08-14 Emergency JANNET Benito [id number] 04:41:00 06:09:00 Aaron Brewer [id number] [place] [id number] [place] [phone] [id number] Results This patient has no known results.
[2021-03-12 12:42] LABS: Basophils % 0.8 % (0-1.3); Hematocrit 50.8 % (39.6-49.0); Lymphocytes % 8.7 % (15.3-44.8); MPV 7.4 fL (7.6-11.3)
[2021-03-12 12:55] LABS: Protime INR 0.99
[2021-03-12 13:21] LABS: ALT/SGPT 44 U/L (12-78); AST/SGOT 31 U/L (15-37); Albumin 4.8 g/dL (3.4-5.0); Alkaline Phosphatase 144 U/L (45-117); BUN Blood Urea Nitrogen 24 mg/dL (7-18); Bicarbonate 24 mmol/L (21-32); Bilirubin Direct 0.2 mg/dL (0-0.2); Bilirubin Total 1.3 mg/dL (0.2-1.0); Glucose Level 81 mg/dL (74-106); Magnesium 2.3 mg/dL (1.8-2.4); NT PRO-BNP 129 pg/mL (<125); Potassium 3.2 mmol/L (3.5-5.1); Protein, Total 9.3 g/dL (6.4-8.2); Sodium Level 136 mmol/L (136-145); Troponin (Emerg Dept Use Only) < 0.02 ng/mL (0.0-0.045)
--- NOTE | 2021-03-12 13:28 | RAD REPORT ---
EXAM DESCRIPTION: RAD - Chest Single View - 03/12/2021 1:20 pm CLINICAL HISTORY: PALPITATIONS Chest pain. COMPARISON: <Comparisons> FINDINGS: Portable technique limits examination quality. The lungs are grossly clear. The heart is normal in size. No displaced fractures. IMPRESSION: No acute intrathoracic process suspected.
[2021-03-12] MEDS ORDERED: NA CHLORIDE 0.9% 1,000 ML ONE ×2 (14:06→15:15)
[2021-03-12 16:45] LABS: Urine Blood Trace-intact (Negative); Urine Glucose Negative (Negative); Urine Protein 1+ (Negative); Urine Specific Gravity >=1.030 (1.005-1.030)
[2021-03-12 17:06] LABS: Barbiturates NEGATIVE (NEGATIVE); Benzodiazepines NEGATIVE (NEGATIVE); Cocaine NEGATIVE (NEGATIVE); METHAMPHETAM POSITIVE (NEGATIVE); Methadone NEGATIVE (NEGATIVE); Opiates NEGATIVE (NEGATIVE); Phencyclidine NEGATIVE (NEGATIVE); THC Cannibis NEGATIVE (NEGATIVE)
--- NOTE | 2021-03-12 17:17 | ER ---
Nurse's Notes [facility] Name: Sanjiv Hdz Age: 50 yrs Sex: Male : 1970 Arrival Date: 03/12/2021 Time: 11:55 Bed 12 Private MD: Diagnosis: Other stimulant abuse-methamphetamines;Dehydration Presentation: 03/12 12:13 Chief complaint: Patient states: HTN and palpitations, L CP for 2 days. States he has ll1 been here like 40 times for his heart and BP. Coronavirus screen: Client denies travel out of the [place] in the last 14 days. At this time, the client does not indicate any symptoms associated with coronavirus-19. Ebola Screen: Patient denies travel to an Ebola-affected area in the 21 days before illness onset. Initial Sepsis Screen: Does the patient meet any 2 criteria? HR > 90 bpm. No. Patient's initial sepsis screen is negative. Does the patient have a suspected source of infection? No. Patient's initial sepsis screen is negative. Risk Assessment: Do you want to hurt yourself or someone else? Patient reports no desire to harm self or others. Onset of symptoms was March 11, 2021. 12:13 Method Of Arrival: Ambulatory ll1 12:13 Acuity: ZEE 3 ll1 Historical: - Allergies: 12:16 No Known Allergies; ll1 - Home Meds: 12:45 None [Active]; iw - PMHx: 12:16 Anxiety; Hypertension; ll1 - PSHx: 12:16 None; ll1 - Immunization history:: Flu vaccine is not up to date. - Social history:: Smoking status: Patient reports the use of cigarette tobacco products, smokes one-half pack cigarettes per day. Screenin:44 Abuse screen: Denies threats or abuse. Denies injuries from another. Nutritional iw screening: No deficits noted. Tuberculosis screening: No symptoms or risk factors identified. Fall Risk None identified. IV access (20 points). Assessment: 12:43 General: Appears in no apparent distress. Behavior is cooperative, anxious. Pain: iw Complains of pain in left breast Pain. Neuro: Level of Consciousness is awake, alert, obeys commands, Oriented to person, place, time, situation, Moves all extremities. Full function. Cardiovascular: Reports chest pain, nausea, palpitations, Patient's skin is warm and dry. Respiratory: Respiratory effort is even, unlabored, Respiratory pattern is regular, symmetrical. GI: Abdomen is flat, non-distended, Reports nausea. : No signs and/or symptoms were reported regarding the genitourinary system. Derm: Skin is intact, is healthy with good turgor. Musculoskeletal: Range of motion: intact in all extremities. 13:21 Reassessment: Patient appears in no apparent distress at this time. Patient and/or iw family updated on plan of care and expected duration. Pain level reassessed. Patient is alert, oriented x 3, equal unlabored respirations, skin warm/dry/pink. 14:30 Reassessment: Patient appears in no apparent distress at this time. Patient and/or iw family updated on plan of care and expected duration. Pain level reassessed. Patient is alert, oriented x 3, equal unlabored respirations, skin warm/dry/pink. Vital Signs: 12:13 BP 165 / 104; Pulse 108; Resp 17; Temp 98.2; Pulse Ox 100% ; Weight 77.11 kg; Height 5 ll1 ft. 8 in. (172.72 cm); Pain 7/10; 13:39 BP 138 / 96; Pulse 86; Resp 16; Pulse Ox 99% on R/A; iw 15:22 BP 141 / 90; Pulse 90; Resp 16 S; Temp 98.6(TE); Pulse Ox 98% on R/A; iw 12:13 Body Mass Index 25.85 (77.11 kg, 172.72 cm) ll1 ED Course: 11:55 Patient arrived in ED. as 12:15 Triage completed. ll1 12:16 Arm band placed on. ll1 12:37 Initial lab(s) drawn, by nj, sent to lab. EKG done, by ED staff, reviewed by Opal Marshall MD. Inserted saline lock: 20 gauge in left antecubital area, using aseptic technique. Blood collected. 12:40 Armando Sahu NP is PHCP. pm1 12:40 Opal Marshall MD is Attending Physician. pm1 12:43 Chantelle Stroud, RN is Primary Nurse. iw 13:20 X-ray completed. Portable x-ray completed in exam room. Patient tolerated procedure sw well. Administered Medications: 13:47 Drug: NS 0.9% 1000 ml Route: IV; Rate: 1000 ml; Site: left forearm; iw 14:57 Drug: NS 0.9% 1000 ml Route: IV; Rate: 1000 ml; Site: left antecubital; iw Outcome: 17:17 Discharge ordered by pm1 17:42 Patient left the ED. iw Signatures: Ashanti Muniz Irene, RN RN iw Vignesh Muniz em1 Shelly Leyva Patrick, NP MECHANICAL SERVICE REPRESENTATIVE pm1 Yamilka Kwong RN RN ll1 Corrections: (The following items were deleted from the chart) 15:44 15:22 BP 141 / 90; Pulse 90bpm; Resp 16bpm; Spontaneous; Pulse Ox 98% RA; iw iw
--- NOTE | 2021-03-12 17:18 | EDPHYS ---
Physician Documentation [facility] Name: Sanjiv Hdz Age: 50 yrs Sex: Male : 1970 Arrival Date: 03/12/2021 Time: 11:55 Bed 12 Private MD: ED Physician Opal Marshall HPI: 03/12 14:16 This 50 yrs old Male presents to ER via Ambulatory with complaints of High pm1 Blood Pressure, Palpitations. 14:16 The patient presents with a history of heart racing. Context: The symptoms occur at pm1 rest. Onset: The symptoms/episode began/occurred 2 day(s) ago. Duration: The patient or guardian reports multiple episodes. Modifying factors: The symptoms are aggravated by nothing. The symptoms are alleviated by nothing. Associated signs and symptoms: Pertinent positives: chest pain, Pertinent negatives: cough, nausea, SOB, vomiting. Severity of symptoms: in the emergency department the symptoms are unchanged. The patient has not experienced similar symptoms in the past. The patient has not recently seen a physician. Historical: - Allergies: 12:16 No Known Allergies; ll1 - Home Meds: 12:45 None [Active]; iw - PMHx: 12:16 Anxiety; Hypertension; ll1 - PSHx: 12:16 None; ll1 - Immunization history:: Flu vaccine is not up to date. - Social history:: Smoking status: Patient reports the use of cigarette tobacco products, smokes one-half pack cigarettes per day. ROS: 14:16 Constitutional: Negative for fever, chills, and weight loss, Eyes: Negative for injury, pm1 pain, redness, and discharge, ENT: Negative for injury, pain, and discharge, Neck: Negative for injury, pain, and swelling. 14:16 Respiratory: Negative for shortness of breath, cough, wheezing, and pleuritic chest pain, Abdomen/GI: Negative for abdominal pain, nausea, vomiting, diarrhea, and constipation, Back: Negative for injury and pain, : Negative for injury, bleeding, discharge, and swelling, MS/Extremity: Negative for injury and deformity, Skin: Negative for injury, rash, and discoloration, Neuro: Negative for headache, weakness, numbness, tingling, and seizure. 14:16 Cardiovascular: Positive for chest pain, palpitations, Negative for edema. Exam: 14:16 Constitutional: This is a well developed, well nourished patient who is awake, alert, pm1 and in no acute distress. Head/Face: Normocephalic, atraumatic. 14:16 Skin: Warm, dry with normal turgor. Normal color with no rashes, no lesions, and no evidence of cellulitis. MS/ Extremity: Pulses equal, no cyanosis. Neurovascular intact. Full, normal range of motion. 14:16 Eyes: Exam is negative for acute changes, Extraocular movements: no acute changes, Conjunctiva: no acute changes, no injection, Sclera: no acute changes, icterus, is not appreciated. 14:16 ENT: Mouth: Lips: normal, Oral mucosa: normal, pink and intact, moist. 14:16 Cardiovascular: Rate: tachycardic, Rhythm: regular, Pulses: no pulse deficits are appreciated. 14:16 Respiratory: Exam negative for acute changes, respiratory distress, shortness of breath. 14:16 Abdomen/GI: Inspection: abdomen appears normal, Palpation: abdomen is soft and non-tender, in all quadrants. 14:16 Neuro: Exam negative for acute changes, Orientation: is normal, Mentation: is normal, Motor: is normal, moves all fours. Vital Signs: 12:13 BP 165 / 104; Pulse 108; Resp 17; Temp 98.2; Pulse Ox 100% ; Weight 77.11 kg; Height 5 ll1 ft. 8 in. (172.72 cm); Pain 7/10; 13:39 BP 138 / 96; Pulse 86; Resp 16; Pulse Ox 99% on R/A; iw 15:22 BP 141 / 90; Pulse 90; Resp 16 S; Temp 98.6(TE); Pulse Ox 98% on R/A; iw 12:13 Body Mass Index 25.85 (77.11 kg, 172.72 cm) ll1 MDM: 12:41 Patient medically screened. pm1 17:16 Data reviewed: vital signs. Data interpreted: Pulse oximetry: on room air is 98 %. pm1 Interpretation: normal. Counseling: I had a detailed discussion with the patient and/or guardian regarding: the historical points, exam findings, and any diagnostic results supporting the discharge/admit diagnosis, lab results, radiology results, the need for outpatient follow up, to return to the emergency department if symptoms worsen or persist or if there are any questions or concerns that arise at home. 03/12 12:28 Order name: Basic Metabolic Panel; Complete Time: 13:41 03/12 12:28 Order name: CBC with Diff; Complete Time: 12:46 iw 03/12 12:28 Order name: LFT's; Complete Time: 13:41 iw 03/12 12:28 Order name: Magnesium; Complete Time: 13:41 03/12 12:28 Order name: NT PRO-BNP; Complete Time: 13:41 03/12 12:28 Order name: PT-INR; Complete Time: 13:04 03/12 12:25 Order name: EKG; Complete Time: 12:26 1 03/12 12:28 Order name: Troponin (emerg Dept Use Only); Complete Time: 13:41 03/12 12:28 Order name: XRAY Chest (1 view) 03/12 12:46 Order name: UDS; Complete Time: 17:11 pm1 03/12 13:29 Order name: RAD; Complete Time: 13:41 EDNV 03/12 16:46 Order name: Urine Dipstick-Ancillary; Complete Time: 17:11 EDMS 03/12 12:25 Order name: EKG - Nurse/Tech; Complete Time: 12:37 1 03/12 12:28 Order name: Cardiac monitoring; Complete Time: 17:00 03/12 12:28 Order name: IV Saline Lock; Complete Time: 12:37 03/12 12:28 Order name: Labs collected and sent; Complete Time: 12:37 03/12 12:28 Order name: O2 Per Protocol; Complete Time: 12:46 03/12 12:28 Order name: O2 Sat Monitoring; Complete Time: 12:46 03/12 12:46 Order name: Urine Dipstick-Ancillary (obtain specimen); Complete Time: 17:00 pm1 Administered Medications: 13:47 Drug: NS 0.9% 1000 ml Route: IV; Rate: 1000 ml; Site: left forearm; iw 14:57 Drug: NS 0.9% 1000 ml Route: IV; Rate: 1000 ml; Site: left antecubital; iw Disposition: 03/12/21 17:17 Discharged to Home. Impression: Other stimulant abuse - methamphetamines, Dehydration. - Condition is Stable. - Discharge Instructions: Stimulant Use Disorder-Amphetamines, Dehydration, Adult, Rehydration, Adult. - Medication Reconciliation Form, Thank You Letter, Antibiotic Education, Prescription Opioid Use form. - Follow up: Emergency Department; When: As needed; Reason: Worsening of condition. Follow up: Private Physician; When: 2 - 3 days; Reason: Recheck today's complaints, Continuance of care, Re-evaluation by your physician. - Problem is new. - Symptoms have improved. Signatures: Dispatcher [employer] EDNV Chantelle Stroud RN RN iw Armando Sahu NP JEWEL BEARING TURNER pm1 Yamilka Kwong RN RN ll1 Corrections: (The following items were deleted from the chart) 17:42 17:17 03/12/2021 17:17 Discharged to Home. Impression: Other stimulant abuse - iw methamphetamines; Dehydration. Condition is Stable. Forms are Medication Reconciliation Form, Thank You Letter, Antibiotic Education, Prescription Opioid Use. Follow up: Emergency Department; When: As needed; Reason: Worsening of condition. Follow up: Private Physician; When: 2 - 3 days; Reason: Recheck today's complaints, Continuance of care, Re-evaluation by your physician. Problem is new. Symptoms have improved. pm1
[2021-03-12 18:39] VITALS: BP 141/90; TEMP 98.6; O2SAT 98
--- NOTE | 2021-03-13 07:52 | EKG ---
Test Date: 2021-03-12 Test Time: 12:24:14 Pilot Safety Inspector: SAI MEASUREMENT RESULTS: Intervals: Rate: 97 TX: 126 QRSD: 88 QT: 346 QTc: 439 [place]: P: 80 TX: 126 QRS: 63 T: 70 INTERPRETIVE STATEMENTS: Normal sinus rhythm Right atrial enlargement Minimal voltage criteria for LVH, may be normal variant Nonspecific ST abnormality Abnormal ECG Compared to ECG 02/17/2021 13:21:19 Atrial abnormality now present Left ventricular hypertrophy now present ST (T wave) deviation now present Electronically Signed On 03-13-21 07:49:12 CDT by Weston Chiang
== END 2021-03-12 17:42 | disposition home or self-care (01) ==
LOC: ER 11:53
DX: F15.10 Other stimulant abuse, uncomplicated (principal); E86.0 Dehydration; F17.210 Nicotine dependence, cigarettes, uncomplicated; F41.9 Anxiety disorder, unspecified; I10 Essential (primary) hypertension; R00.2 Palpitations
CPT/HCPCS: 36415; 71045; 80048; 80076; 80307; 81003; 83735; 83880; 84484; 85025; 85610; 93005; 99284; J7030

== ENCOUNTER → 2023-10-10 | Emergency (ER) | payer SELFPAY ==
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
--- NOTE | 2023-10-10 05:30 | ER ---
Nurse's Notes [facility] Name: Sanjiv Hdz Age: 53 yrs Sex: Male : 1970 Arrival Date: 10/10/2023 Time: 03:46 Bed 12 Private MD: Diagnosis: Lumbar strain, cervical strain, fall Presentation: 10/10 03:53 Chief complaint: Patient states: "I fell down a couple of steps off a staircase while I jw7 was helping a friend move some furniture and now my back, head, and neck are hurting. If feels like I broke my neck". Coronavirus screen: At this time, the client does not indicate any symptoms associated with coronavirus-19. Ebola Screen: No symptoms or risks identified at this time. Initial Sepsis Screen: Does the patient meet any 2 criteria? No. Patient's initial sepsis screen is negative. Does the patient have a suspected source of infection? No. Patient's initial sepsis screen is negative. Risk Assessment: Do you want to hurt yourself or someone else? Patient reports no desire to harm self or others. Onset of symptoms was October 10, 2023. 03:53 Method Of Arrival: [facility]: [facility] 03:53 Acuity: ZEE 3 jw7 Triage Assessment: 03:56 General: Appears in no apparent distress. uncomfortable, Behavior is calm, cooperative, jw7 restless. Pain: Complains of pain in Head, neck and back Pain does not radiate. Pain currently is 10 out of 10 on a pain scale. Quality of pain is described as sharp, throbbing, Pain began suddenly, Is continuous, Noted to be grimacing, moaning, restless. EENT: No deficits noted. No signs and/or symptoms were reported regarding the EENT system. Neuro: Level of Consciousness is awake, alert, obeys commands, Oriented to person, place, time, situation. Cardiovascular: Capillary refill < 3 seconds Clubbing of nail beds is absent JVD is absent Patient's skin is warm and dry. Respiratory: Airway is patent Trachea midline Respiratory effort is even, unlabored, Respiratory pattern is regular, symmetrical. GI: Abdomen is round non-distended. : No deficits noted. No signs and/or symptoms were reported regarding the genitourinary system. Derm: Skin is intact, is healthy with good turgor, Skin is dry, Skin is normal, Skin temperature is warm. Musculoskeletal: Circulation, motion, and sensation intact. Range of motion: intact in all extremities. Historical: - Allergies: 03:56 No Known Allergies; jw7 - Home Meds: 03:56 None [Active]; jw7 - PMHx: 03:56 Anxiety; Hypertension; jw7 - PSHx: 03:56 None; jw7 - Immunization history:: Adult Immunizations unknown. - Social history:: Smoking status: Patient reports the use of cigarette tobacco products, smokes one-half pack cigarettes per day. Screenin:58 [facility] ED Fall Risk Assessment (Adult) History of falling in the last 3 months, jw7 including since admission Yes- single mechanical fall (1 pt) Confusion or Disorientation No (0 pts) Intoxicated or Sedated No (0 pts) Impaired Gait Yes (1 pt) Mobility Assist Device Used No (0 pt) Altered Elimination No (0 pt) Score/Fall Risk Level 0 - 2 = Low Risk Oriented to surroundings, Maintained a safe environment, Educated pt \\T\\ family on fall prevention, incl call for assistance when getting out of bed. Abuse screen: Denies threats or abuse. Denies injuries from another. Nutritional screening: No deficits noted. Tuberculosis screening: No symptoms or risk factors identified. Assessment: 03:59 General: see triage assessment. jw7 05:01 Reassessment: Patient appears in no apparent distress at this time. No changes from 7 previously documented assessment. Patient and/or family updated on plan of care and expected duration. Pain level reassessed. Patient is alert, oriented x 3, equal unlabored respirations, skin warm/dry/pink. 05:37 Reassessment: Patient appears in no apparent distress at this time. Patient and/or jw7 family updated on plan of care and expected duration. Pain level reassessed. Patient is alert, oriented x 3, equal unlabored respirations, skin warm/dry/pink. Vital Signs: 03:53 BP 151 / 103; Pulse 96; Resp 20 S; Temp 98.6(O); Pulse Ox 100% on R/A; Weight 72.57 kg; jw7 Height 5 ft. 8 in. ; Pain 10/10; 05:01 BP 132 / 111; Pulse 105; Resp 21 S; Pulse Ox 99% on R/A; jw7 05:37 BP 140 / 95; Pulse 99; Resp 19 S; Pulse Ox 99% on R/A; jw7 03:53 Body Mass Index 24.33 (72.57 kg, 172.72 cm) jw7 03:53 Pain Scale: Adult jw7 ED Course: 03:48 Patient arrived in ED. 03:50 Osman Benedict MD is Attending Physician. sp3 03:53 Linh Roland, RN is Primary Nurse. jw7 03:56 Triage completed. jw7 03:56 Arm band placed on. EKG completed in triage. Results shown to MD. jw7 03:58 Patient has correct armband on for positive identification. Bed in low position. Call jw7 light in reach. 05:23 C Spine Ap/Lat XRAY In Process Unspecified. EDMS 05:23 Lumbar Spine (3 Views) XRAY In Process Unspecified. EDMS 05:38 Provided Education on: discharge instructions and medication usage. jw7 05:38 No provider procedures requiring assistance completed. Patient did not have IV access jw7 during this emergency room visit. Administered Medications: No medications were administered Medication: 05:38 VIS not applicable for this client. jw7 Outcome: 05:29 Discharge ordered by . sp3 05:38 Discharged to home ambulatory, jw7 05:38 Condition: stable 05:38 Discharge instructions given to patient, Instructed on discharge instructions, follow up and referral plans. medication usage, Demonstrated understanding of instructions, follow-up care, medications, Prescriptions given X 2, 05:38 Patient left the ED. jw7 Signatures: Dispatcher [employer] EDGA Isabella Patel Osman Benedict MD MD sp3 Linh Roland, RN RN jw7
[2023-10-10 10:35] VITALS: TEMP 98.6; O2SAT 99
[2023-10-10 10:51] VITALS: BP 140/95
--- NOTE | 2023-10-10 12:10 | RAD REPORT ---
EXAM DESCRIPTION: RAD - Lumbar Spine 3 Views - 10/10/2023 5:21 am CLINICAL HISTORY: Trauma COMPARISON: None. TECHNIQUE: XR LUMBAR SPINE 2-3 VIEWS 10/10/2023 3:50 AM SUPERINTENDENT OVERHEAD DISTRIBUTION FINDINGS: There is no acute fracture. Vertebral body heights are preserved. Alignment is anatomic. C holecystectomy was performed. Disc spaces are maintained. Soft tissues are unremarkable. IMPRESSION: No acute fracture or subluxation. Electronically signed by: Maged Groves MD 10/10/2023 06:07 AM [employer]PERINTENDENT [employer] Due to temporary technical issues with the PACS/Fluency reporting system, reports are being signed by the in house radiologist without review as a courtesy to ensure prompt reporting. The interpreting r adiologist is fully responsible for the content of the report.
--- NOTE | 2023-10-10 12:12 | RAD REPORT ---
EXAM DESCRIPTION: RAD - C Spine Ap/Lat - 10/10/2023 5:21 am CLINICAL HISTORY: Trauma COMPARISON: None. TECHNIQUE: XR CERVICAL SPINE 2-3 VIEWS 10/10/2023 3:50 AM SPACE OPERATIONS OFFICER FINDINGS: There is no acute fracture. Vertebral body heights are preserved. Alignment is anatomic. There is mild narrowing of the C4-5 as well as C5-6 discs. Soft tissues are unremarkable. IMPRESSION: No acute fracture or subluxation. Electronically signed by: Maged Groves MD 10/10/2023 06:06 AM SPACE OPERATIONS OFFICER Due to temporary technical issues with the PACS/Fluency reporting system, reports are being signed by the in house radiologist without review as a courtesy to ensure prompt reporting. The interpreting r adiologist is fully responsible for the content of the report.
== END ==
LOC: ER 03:46
DX: S39.012A Strain of muscle, fascia and tendon of lower back, initial encounter (principal); S16.1XXA Strain of muscle, fascia and tendon at neck level, initial encounter; W10.9XXA Fall (on) (from) unspecified stairs and steps, initial encounter; Y93.89 Activity, other specified; Y92.89 Other specified places as the place of occurrence of the external cause; I10 Essential (primary) hypertension; F41.9 Anxiety disorder, unspecified; F17.210 Nicotine dependence, cigarettes, uncomplicated
CPT/HCPCS: 72040; 72100; 99284

== ENCOUNTER → 2023-10-13 | Emergency (ER) | payer SELFPAY ==
[~2023-10-13] MED LIST: ASPIRIN 81 MG CHEWABLE TABLET ONE
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
[2023-10-13 20:15] LABS: Protime INR 1.12
[2023-10-13 20:16] LABS: Absolute Lymphocytes (CBC) 1.1 K/uL (0.7-4.9); Hematocrit 40.5 % (39.6-49.0); Lymphocytes % 22.1 % (15.3-44.8); MCV 81.5 fL (80-100); MPV 7.8 fL (7.6-11.3); Platelets 507 thou/uL (152-406); RBC Red Blood Cell Count 4.97 M/uL (4.33-5.43)
--- NOTE | 2023-10-13 20:48 | RAD REPORT ---
[facility] 7:37 pm CLINICAL HISTORY: CHEST PAIN COMPARISON: Chest Single View dated 03/12/2021 TECHNIQUE: Portable AP view of the chest. FINDINGS: The lungs are clear. No pneumothorax or effusion. The cardiomediastinal contours are unre markable. IMPRESSION: No acute cardiopulmonary process.
[2023-10-13 21:28] LABS: Albumin 3.1 g/dL (3.4-5.0); Bilirubin Direct 0.1 mg/dL (0-0.2); Bilirubin Indirect, Calculated 0.3 mg/dL (0.2-0.8); Bilirubin Total 0.4 mg/dL (0.2-1.0); Potassium 3.5 mEq/L (3.5-5.1); Protein, Total 7.1 g/dL (6.4-8.2); Troponin High Sensitivity 6.8 pg/mL (<58.9)
--- NOTE | 2023-10-13 22:05 | ER ---
Nurse's Notes [facility] Name: Sanjiv Hdz Age: 53 yrs Sex: Male : 1970 Arrival Date: 10/13/2023 Time: 19:07 Bed 8 Private MD: Diagnosis: Adverse effect of amphetamines;Methamphetamine induced delusions, methamphetamine use disorder Presentation: 10/13 19:12 Chief complaint: Patient states: BEEN HAVING CP FOR A LONG TIME THAT COMES AND GOES. jj7 NOW IT'S JUST MOVING ALL AROUND HIS CHEST. "FEELS LIKE I'VE BEEN GETTING ATTACKED BY SPIRITS THE LAST COUPLE OF DAYS AND IT'S GETTING IN MY HEART TRYING TO PULL MY HEART OUT AND MAKING IT STOP.". Coronavirus screen: At this time, the client does not indicate any symptoms associated with coronavirus-19. Ebola Screen: No symptoms or risks identified at this time. Initial Sepsis Screen: Does the patient meet any 2 criteria? HR > 90 bpm. No. Patient's initial sepsis screen is negative. Does the patient have a suspected source of infection? No. Patient's initial sepsis screen is negative. Risk Assessment: Do you want to hurt yourself or someone else? Patient reports no desire to harm self or others. 19:12 Method Of Arrival: Ambulatory 7 19:12 Acuity: ZEE 3 jj7 21:43 Onset of symptoms is unknown. jw7 Triage Assessment: 19:17 General: Appears in no apparent distress. comfortable, Behavior is cooperative, jj7 appropriate for age, inappropriate for age. Pain: Complains of pain in chest. Cardiovascular: Reports chest pain. Historical: - Allergies: 19:17 No Known Allergies; jj7 - PMHx: 19:17 Anxiety; Hypertension; jj7 - PSHx: 19:17 Cholecystectomy; jj7 - Immunization history:: Adult Immunizations up to date. - Social history:: Smoking status: Patient reports the use of cigarette tobacco products, smokes one-half pack cigarettes per day, Patient uses Patient/guardian denies using alcohol, street drugs. Screenin:19 [facility] ED Fall Risk Assessment (Adult) History of falling in the last 3 months, jj7 including since admission No falls in past 3 months (0 pts) Confusion or Disorientation No (0 pts) Intoxicated or Sedated No (0 pts) Impaired Gait No (0 pts) Mobility Assist Device Used No (0 pt) Altered Elimination No (0 pt) Score/Fall Risk Level 0 - 2 = Low Risk Oriented to surroundings, Maintained a safe environment, Educated pt \\T\\ family on fall prevention, incl call for assistance when getting out of bed. Abuse screen: Denies threats or abuse. Nutritional screening: No deficits noted. Tuberculosis screening: No symptoms or risk factors identified. Assessment: 19:15 General: SEE TRIAGE NOTE. bp 20:20 Reassessment: Patient appears in no apparent distress at this time. Patient and/or jw7 family updated on plan of care and expected duration. Pain level reassessed. Patient is alert, oriented x 3, equal unlabored respirations, skin warm/dry/pink. 20:45 Pain: Denies pain. jw7 21:41 Reassessment: Patient appears in no apparent distress at this time. Patient and/or jw7 family updated on plan of care and expected duration. Pain level reassessed. Patient is alert, oriented x 3, equal unlabored respirations, skin warm/dry/pink. Vital Signs: 19:12 BP 181 / 109; Pulse 102; Resp 17; Temp 97.2; Pulse Ox 100% ; Weight 72.57 kg; Height 5 jj7 ft. 8 in. ; Pain 8/10; 19:15 BP 145 / 96; Pulse 93; Resp 16; Pulse Ox 99% ; bp 20:00 BP 145 / 96; Pulse 93; Resp 17; Pulse Ox 99% ; jw7 21:00 BP 140 / 89; Pulse 85; Resp 16; Pulse Ox 99% ; jw7 22:17 BP 150 / 95; Pulse 83; Resp 16 S; Pulse Ox 99% on R/A; jw7 19:12 Body Mass Index 24.33 (72.57 kg, 172.72 cm) jj7 19:12 Pain Scale: Adult 7 ED Course: 19:09 Patient arrived in ED. mr 19:17 Naheed Franco PA-C is PHCP. sb4 19:17 Brian Raygoza MD is Attending Physician. sb4 19:17 Triage completed. jj7 19:17 Arm band placed on left wrist. jj7 19:26 Corey Parker, RN is Primary Nurse. bp 19:39 XRAY Chest (1 view) In Process Unspecified. EDMS 19:55 Missed attempt(s): Bleeding controlled, band aid applied, catheter tip intact. oe 19:59 Inserted saline lock: 22 gauge in left forearm, using aseptic technique. Blood oe collected. 20:08 Troponin HS Sent. oe 20:08 PT-INR Sent. oe 20:08 NT PRO-BNP Sent. oe 20:08 Magnesium Sent. oe 20:08 LFT's Sent. oe 20:08 CBC with Diff Sent. oe 20:09 Basic Metabolic Panel Sent. oe 20:10 Patient has correct armband on for positive identification. Bed in low position. Call bp light in reach. Side rails up X2. Client placed on continuous cardiac and pulse oximetry monitoring. NIBP monitoring applied. 20:12 Attending Physician role handed off by Brian Raygoza MD sp4 20:12 Jose Chanel MD is Attending Physician. sp4 22:18 Provided Education on: discharge instructions. jw7 22:18 No provider procedures requiring assistance completed. IV discontinued, intact, jw7 bleeding controlled, No redness/swelling at site. Pressure dressing applied. Administered Medications: 19:43 Drug: Aspirin PO Chewable Tablet 324 mg PO once; 81 mg tablets x 4 Route: PO; bp 22:19 Follow up: Response: No adverse reaction jw7 Medication: 21:42 VIS not applicable for this client. jw7 Outcome: 22:05 Discharge ordered by . sp4 22:18 Discharged to home ambulatory, jw7 22:18 Condition: stable 22:18 Discharge instructions given to patient, Instructed on discharge instructions, follow up and referral plans. Demonstrated understanding of instructions, follow-up care, 22:19 Patient left the ED. jw7 Signatures: Dispatcher [employer] EDMS Madeleine Corado, Reg Reg Tae Juarez oe Corey Parker, RN RN Linh Dsouza RN RN Artem Ward RN RN Naheed Castillo PA-C PAJose Mabry MD MD sp4 Corrections: (The following items were deleted from the chart) 19:18 19:17 PSHx: None; chet rosenberg
--- NOTE | 2023-10-13 22:05 | EDPHYS ---
Physician Documentation [facility] Name: Sanjiv Hdz Age: 53 yrs Sex: Male : 1970 Arrival Date: 10/13/2023 Time: 19:07 Bed 8 Private MD: ED Physician Jose Chanel HPI: 10/13 19:21 This 53 yrs old Male presents to ER via Ambulatory with complaints of Chest Pain. sb4 19:22 The patient or guardian reports chest pain that is located primarily in the anterior sb4 chest wall. Onset: this morning. The pain radiates to the left arm. Associated signs and symptoms: Pertinent positives: palpitations. The chest pain is described as sharp. patient complains of chest pain resembling "demons pulling his heart apart" reports history of anxiety. no cardiac history that he knows of. 19:24 The patient has not experienced similar symptoms in the past. sb4 20:12 Patient care assumed from [place] at 08:12 PM . sp4 Historical: - Allergies: 19:17 No Known Allergies; jj7 - PMHx: 19:17 Anxiety; Hypertension; jj7 - PSHx: 19:17 Cholecystectomy; jj7 - Immunization history:: Adult Immunizations up to date. - Social history:: Smoking status: Patient reports the use of cigarette tobacco products, smokes one-half pack cigarettes per day, Patient uses Patient/guardian denies using alcohol, street drugs. ROS: 19:24 Constitutional: Negative for fever, chills, and weight loss, sb4 19:24 Cardiovascular: Positive for chest pain, 19:24 All other systems are negative, Exam: 19:24 Constitutional: This is a well developed, well nourished patient who is awake, alert, sb4 and in no acute distress. Head/Face: Normocephalic, atraumatic. Eyes: Extra-ocular motions intact. Periorbital areas with no swelling, redness, or edema. ENT: Mucous membranes moist. Cardiovascular: Regular rate and rhythm with a normal S1 and S2. Respiratory: Lungs have equal breath sounds bilaterally, clear to auscultation and percussion. No rales, rhonchi or wheezes noted. No increased work of breathing, no retractions or nasal flaring. Abdomen/GI: Soft, non-tender, no distension. Skin: Warm, dry with normal turgor. Normal color with no rashes, no lesions, and no evidence of cellulitis. MS/ Extremity: Pulses equal, no cyanosis. Neurovascular intact. Full, normal range of motion. Neuro: Awake and alert, GCS 15, oriented to person, place, time, and situation. Motor strength 5/5 in all extremities. Sensory grossly intact. 21:07 ECG was reviewed by the Attending Physician. EKG at 1924 normal sinus rhythm at rate sp4 of 98 overall normal EKG, no ST elevation or depression, no ectopy, normal intervals, overall normal EKG Vital Signs: 19:12 BP 181 / 109; Pulse 102; Resp 17; Temp 97.2; Pulse Ox 100% ; Weight 72.57 kg; Height 5 jj7 ft. 8 in. ; Pain 8/10; 19:15 BP 145 / 96; Pulse 93; Resp 16; Pulse Ox 99% ; bp 20:00 BP 145 / 96; Pulse 93; Resp 17; Pulse Ox 99% ; jw7 21:00 BP 140 / 89; Pulse 85; Resp 16; Pulse Ox 99% ; jw7 22:17 BP 150 / 95; Pulse 83; Resp 16 S; Pulse Ox 99% on R/A; jw7 19:12 Body Mass Index 24.33 (72.57 kg, 172.72 cm) jj7 19:12 Pain Scale: Adult jj7 MDM: 19:17 Patient medically screened. sb4 19:24 Differential diagnosis: abnormal EKG, acute myocardial infarction, anxiety, chest wall sb4 pain, stable angina, unstable angina, drug intoxication. The patient was given aspirin in the Emergency Department. 20:13 Transition of care: After a detail discussion of the patient's case, care is sb4 transferred to Jose Chanel MD. 21:07 HEART Score: History: Slightly Suspicious (0), ECG: Normal (0), Age: > 45 and < 65 sp4 years (1), Risk Factors: No Risk Factors Known (0), Troponin: < or = 1 x Normal Limit (0), Total Score = 1. 21:07 Data reviewed: vital signs, nurses notes, old medical records, lab test result(s), EKG, sp4 radiologic studies, plain films. 22:03 ED course: This medical workup today is normal.. Patient states he has been possessed sp4 by the [employer] and states he uses crystal meth. We have advised patient to discontinue methamphetamine abuse.. Patient is stable for discharge home at that time, there is no signs of agitated psychosis. Patient was strongly advised to discontinue use of recreational drugs. . 10/13 19:17 Order name: Basic Metabolic Panel; Complete Time: 21:46 sb4 10/13 19:17 Order name: CBC with Diff; Complete Time: 20:50 sb4 10/13 19:17 Order name: LFT's; Complete Time: 21:46 sb4 10/13 19:17 Order name: Magnesium; Complete Time: 21:46 sb4 10/13 19:17 Order name: NT PRO-BNP; Complete Time: 21:46 sb4 10/13 19:17 Order name: PT-INR; Complete Time: 20:50 sb4 10/13 19:17 Order name: Troponin HS; Complete Time: 21:46 sb4 10/13 19:17 Order name: XRAY Chest (1 view); Complete Time: 20:50 sb4 10/13 19:17 Order name: EKG; Complete Time: 19:18 sb4 10/13 19:17 Order name: Cardiac monitoring; Complete Time: 19:38 sb4 10/13 19:17 Order name: EKG - Nurse/Tech; Complete Time: 19:38 sb4 10/13 19:17 Order name: IV Saline Lock; Complete Time: 19:43 sb4 10/13 19:17 Order name: Labs collected and sent; Complete Time: 19:43 sb4 10/13 19:17 Order name: O2 Per Protocol; Complete Time: 19:38 sb4 10/13 19:17 Order name: O2 Sat Monitoring; Complete Time: 19:38 sb4 EC:07 Rate is 98 beats/min. Rhythm is regular, Sinus Rhythm. QRS [place] is Normal. [place] interval sp4 is normal. QRS interval is normal. QT interval is normal. No Q waves. T waves are Normal. No ST changes noted. Clinical impression: Normal ECG. Interpreted by me. Reviewed by me. Administered Medications: 19:43 Drug: Aspirin PO Chewable Tablet 324 mg PO once; 81 mg tablets x 4 Route: PO; bp 22:19 Follow up: Response: No adverse reaction jw7 Disposition: 20:14 Co-signature as Attending Physician, Jose Potepalov MD I agree with the assessment sp4 and plan of care. I reviewed the patient's care provided by Advanced Practice Provider \\T\\ agree w/ the diagnosis \\T\\ care plan. I personally saw the pt \\T\\ performed a substantive portion of the visit, incldng all aspects of the (History/Exam/Medical Decision Making). Disposition Summary: 10/13/23 22:05 Discharge Ordered Notes: Location: Home sp4 Problem: new sp4 Symptoms: have improved sp4 Condition: Stable sp4 Diagnosis - Adverse effect of amphetamines sp4 - Methamphetamine induced delusions, methamphetamine use disorder sp4 Followup: sp4 - With: Private Physician - When: As needed - Reason: Discharge Instructions: - Discharge Summary Sheet sp4 - Methamphetamines Use Disorder sp4 Forms: - Patient Portal Instructions sp4 Signatures: Dispatcher [employer] EDCorey Yu RN RN Artem Coker RN RN jNaheed Bond, PA-Ely PA-Ely Jose Rosa MD MD sp4 WaitLinh cano RN jw7 Corrections: (The following items were deleted from the chart) 19:18 19:17 PSHx: None; jj7 jj7
[2023-10-14 04:01] VITALS: TEMP 97.2
[2023-10-14 04:16] VITALS: BP 150/95; O2SAT 99
--- NOTE | 2023-10-14 17:49 | EKG ---
Test Date: 2023-10-13 Test Time: 19:24:52 [employer] Professor: ADALI MEASUREMENT RESULTS: Intervals: Rate: 98 WY: 130 QRSD: 86 QT: 350 QTc: 446 [place]: P: 68 WY: 130 QRS: 44 T: 20 INTERPRETIVE STATEMENTS: Normal sinus rhythm Normal ECG Compared to ECG 03/12/2021 12:24:14 Atrial abnormality no longer present Left ventricular hypertrophy no longer present ST (T wave) deviation no longer present Electronically Signed On 10-14-23 17:48:30 [employer] by Patrick Saeed
== END ==
LOC: ER 19:07
DX: F22 Delusional disorders (principal); T43.625A Adverse effect of amphetamines, initial encounter
CPT/HCPCS: 36415; 71045; 80048; 80076; 83735; 83880; 84484; 85025; 85610; 93005; 99284